=== PATIENT | male | born 1950 | race Caucasian/White ===

== ENCOUNTER 2016-05-19 07:26 | Inpatient (IN) ==
--- NOTE | 2016-05-16 14:45 | Discharge Summary ---
<Maryan Delaney - Last Filed: 05/18/16 21:10> Date of Encounter: 05/18/16 - Discharge Diagnosis (1) Glenohumeral arthritis Priority: Primary Status: Acute Qualifiers: Laterality: right Qualified Code(s): M19.011 - Primary osteoarthritis, right shoulder (2) Smoker Priority: Secondary Status: Chronic (3) HTN (hypertension) Priority: Secondary Status: Chronic Qualifiers: Hypertension type: essential hypertension Qualified Code(s): I10 - Essential (primary) hypertension (4) Hyperlipidemia Priority: Secondary Status: Chronic Qualifiers: Hyperlipidemia type: unspecified Qualified Code(s): E78.5 - Hyperlipidemia , unspecified (5) Pacemaker Priority: Secondary Status: Chronic - Discharge Medications Home Medications: Ascorbic Acid [Vitamin C] 1,000 mg PO DAILY 11/25/14 [History] Cholecalciferol (Vitamin D3) [Vitamin D] 1,000 unit PO DAILY 11/25/14 [History] Gabapentin [Neurontin] 300 mg PO TID 11/25/14 [History] Losartan [Cozaar] 100 mg PO QPM 11/25/14 [History] Metoprolol XL (24 HR) Succ [Toprol XL] 50 mg PO DAILY 11/25/14 [History] SUMAtriptan [Imitrex] 100 mg PO DAILY PRN 11/25/14 [History] Simvastatin [Zocor] 40 mg PO QPM 11/25/14 [History] Tizanidine [Zanaflex] 4 mg PO Q8H PRN 11/25/14 [History] OxyCODONE Immed Rel [Roxicodone 5 MG] 10 mg PO TID PRN 12/04/15 [History] Melatonin 5 mg PO HS 01/18/16 [History] Vitamin B Complex 1 each PO DAILY 01/18/16 [History] Amlodipine Besylate 2.5 mg PO DAILY 04/08/16 [History] Cranberry Fruit Extract [Cranberry] 1,000 mg PO QID 04/08/16 [History] Dicyclomine [Bentyl] 10 mg PO QID PRN 04/08/16 [History] Fluticasone Propionate Nasal [Flonase] 50 mcg NS DAILY 04/08/16 [History] Multivitamin [Multivitamins] 1 each PO DAILY 04/08/16 [History] Sertraline [Zoloft] 25 mg PO DAILY 04/08/16 [History] OxyCODONE Immed Rel [Roxicodone 5 MG] 5 - 10 mg PO DAILY #14 tablet 05/18/16 [Rx ] Allergies/Adverse Reactions: Allergies latex Allergy (Verified 05/19/16 08:28) Redness of Skin Cyclobenzaprine [From Flexeril] Adverse Reaction (Verified 05/19/16 08:28) Nausea methocarbamol [From Robaxin] Adverse Reaction (Verified 05/19/16 08:28) Nausea naproxen Adverse Reaction (Verified 05/19/16 08:28) Nausea tramadol Adverse Reaction (Verified 05/19/16 08:28) Nausea Primary care physician: Tai Bernal MD - Patient Status Disposition: Home, Self-Care Condition: Good - Discharge Instructions Follow Up With: Tai Bernal MD [Primary Care Provider] - - Hospital Course Hospital course: Mr. Godoy is a 66 year old male - Time Spent with Patient Total time spent providing and/or coordinating discharge services: <Mitch Mendoza - Last Filed: 05/20/16 06:48> Date of Encounter: 05/20/16 Time of Encounter: 06:47 - Discharge Diagnosis (1) Smoker Priority: Secondary Status: Chronic (2) HTN (hypertension) Priority: Secondary Status: Chronic Qualifiers: Hypertension type: essential hypertension Qualified Code(s): I10 - Essential (primary) hypertension (3) Hyperlipidemia Priority: Secondary Status: Chronic Qualifiers: Hyperlipidemia type: unspecified Qualified Code(s): E78.5 - Hyperlipidemia , unspecified (4) Pacemaker Priority: Secondary Status: Chronic (5) Polycythemia Priority: Secondary Status: Chronic (6) Glenohumeral arthritis Priority: Primary Status: Acute Qualifiers: Laterality: right Qualified Code(s): M19.011 - Primary osteoarthritis, right shoulder Primary care physician: Tai Bernal MD - Patient Status Functional capacity at discharge: independent ambulation Overall status at discharge: patient is progressing back to baseline - Hospital Course Hospital course: Mr. Godoy is a 66 year old male The patient had an uneventful postoperative course. They received antibiotics and physical therapy and were discharged in stable condition. There will follow -up in the office in 2 weeks. - Time Spent with Patient Total time spent providing and/or coordinating discharge services:
--- NOTE | 2016-05-19 07:37 | History & Physical Report ---
Date of Encounter: 05/19/16 Time of Encounter: 07:37 24 Hour HP Update - Instructions Instructions: If the History and Physical is less than 30 days old and was completed prior to A.M. admission and or procedure and has NOT been updated on calendar day of procedure please complete this update prior to performing procedure. - Update Patient reports changes in Medical Condition: No Changes in examination, assessment, or condition: No Changes in Medication: No Preop tests/diagnostics Reviewed: Yes Surgery Remains Indicated: Yes Consent for Planned Operative Procedure(s) Verified: Yes - Pre-Operative Checklist Preoperative Checklist Indicated: No Prophylactic Antibiotic Ordered: Yes Is VTE Prophylaxis Indicated?: Yes
[2016-05-19] MEDS ORDERED: *HR* Midazolam HCl 2 MG/2 ML VIAL ONE (08:03)
[2016-05-19] MEDS ORDERED: Ondansetron 4 MG/2 ML VIAL ONE (08:03)
[2016-05-19] MEDS ORDERED: *HR* Propofol 200 MG/20 ML VIAL IVP ONE (08:03)
[2016-05-19] MEDS ORDERED: Lidocaine -MPF 2% 2 ML VIAL ONE (08:03)
[2016-05-19] MEDS ORDERED: *HR* Succinylcholine 200 MG/10 ML VIAL IVP ONE (08:03)
[2016-05-19] MEDS ORDERED: *HR* FentaNYL (PF) 100 MCG/2 ML VIAL ONE (08:03)
[2016-05-19] MEDS ORDERED: CeFAZolin Pre 2,000 MG/100 ML 2,000 MG/100 ML BAG IVPB ONE (08:07)
[2016-05-19] MEDS ORDERED: Albuterol 2.5 MG/3 ML NEBULIZER IH ONE (08:07)
[2016-05-19] MEDS ORDERED: Ringers Solution, Lactated 1,000 ML IVC SCH (08:15)
[2016-05-19] MEDS ORDERED: Famotidine 20 MG/2 ML VIAL IVP ONE (08:29)
--- NOTE | 2016-05-19 08:36 | Anesthesia Evaluation PreOp ---
Date of Encounter: 05/19/16 Time of Encounter: 08:35 - Past History Planned Operation: Rt Total Shoulder Cardiac History: HTN, Hyperlipidemia, Pacemaker/ICD (Last checked ) Pulmonary History: Denies Any Significant HX FOREST MANAGEMENT PROFESSOR History: Denies Any Significant HX Other Medical History: GERD Anesthesia History: No Prior Anesthetic Complications Alcohol Use: none Drug use: none Medications and Allergies Ascorbic Acid [Vitamin C] 1,000 mg PO DAILY 11/25/14 [History] Cholecalciferol (Vitamin D3) [Vitamin D] 1,000 unit PO DAILY 11/25/14 [History] Gabapentin [Neurontin] 300 mg PO TID 11/25/14 [History] Losartan [Cozaar] 100 mg PO QPM 11/25/14 [History] Metoprolol XL (24 HR) Succ [Toprol XL] 50 mg PO DAILY 11/25/14 [History] SUMAtriptan [Imitrex] 100 mg PO DAILY PRN 11/25/14 [History] Simvastatin [Zocor] 40 mg PO QPM 11/25/14 [History] Tizanidine [Zanaflex] 4 mg PO Q8H PRN 11/25/14 [History] OxyCODONE Immed Rel [Roxicodone 5 MG] 10 mg PO TID PRN 12/04/15 [History] Melatonin 5 mg PO HS 01/18/16 [History] Vitamin B Complex 1 each PO DAILY 01/18/16 [History] Amlodipine Besylate 2.5 mg PO DAILY 04/08/16 [History] Cranberry Fruit Extract [Cranberry] 1,000 mg PO QID 04/08/16 [History] Dicyclomine [Bentyl] 10 mg PO QID PRN 04/08/16 [History] Fluticasone Propionate Nasal [Flonase] 50 mcg NS DAILY 04/08/16 [History] Multivitamin [Multivitamins] 1 each PO DAILY 04/08/16 [History] Sertraline [Zoloft] 25 mg PO DAILY 04/08/16 [History] OxyCODONE Immed Rel [Roxicodone 5 MG] 5 - 10 mg PO DAILY #14 tablet 05/18/16 [Rx ] Allergies latex Allergy (Verified 05/19/16 08:28) Redness of Skin Cyclobenzaprine [From Flexeril] Adverse Reaction (Verified 05/19/16 08:28) Nausea methocarbamol [From Robaxin] Adverse Reaction (Verified 05/19/16 08:28) Nausea naproxen Adverse Reaction (Verified 05/19/16 08:28) Nausea tramadol Adverse Reaction (Verified 05/19/16 08:28) Nausea - Meds/Allergy Pre-op Review Medications Reviewed: Yes Allergies Reviewed: Yes Beta Blockers on Current Med List: Yes (Took Metoprolol today 0610) Anesthesia Results - Imaging EKG: report reviewed (Atrial Pacemaker) Additional studies: EF 60% Anesthesia Exam O2 Sat Height 1.78 m Height 1.78 m Height 1.78 m Weight 87.09 kg Weight 87.09 kg Weight 87.09 kg O2 Sat by Pulse Oximetry 97 O2 Sat by Pulse Oximetry 97 Vital Signs Temp Pulse Resp BP Pulse Ox 98.0 F 87 18 117/79 97 05/19/16 07:44 05/19/16 07:44 05/19/16 07:44 05/19/16 07:44 05/19/16 07:44 Height: 5'10 Weight: 185 lbs NPO (# of Hours): MN Pain Scale: 0 - HEENT Pupil (Motor): Pupils equal, EOMI Mallampati: III Teeth: Edentulous Oral Opening: Greater than 3 - FOREST MANAGEMENT PROFESSOR LOC: Oriented FOREST MANAGEMENT PROFESSOR Motor: Normal RUE, Normal LUE, Normal RLE, Normal LLE, Normal Face FOREST MANAGEMENT PROFESSOR Sensory: Normal: RUE, LUE, RLE, LLE, Face - Cardiac Rhythm: Regular Murmur: None JVD: No Carotid Bruit: No - Pulmonary Breath Sounds: bilateral Clear Respiratory Effort: Symmetrical Anesthesia Assess/Plan ASA Score: 3 (HTN Arrhythmia) Modified [place] Scale for Level of Consciousness: Cooperative, oriented, and tranquil Anesthetic Plan: General, Regional Monitoring Plan: Standard Monitors Recovery Plan: PACU (Discused GA and RA, agrees to proceed)
[2016-05-19] MEDS ORDERED: Bupivacaine/Clonidine Syringe 1 EACH SYRINGE ONE (09:19)
[2016-05-19] MEDS ORDERED: ROPIVACAINE HCL/PF 0.5% 30 ML VIAL ONE (09:19)
[2016-05-19] MEDS ORDERED: Tetracaine/PF 20 MG/2 ML AMPUL SPINA ONE (09:19)
--- NOTE | 2016-05-19 09:55 | Anesthesia Procedures ---
Date of Encounter: 05/19/16 Time of Encounter: 08:34 Procedures: Anesthesia - Nerve Block Procedure Date: 05/19/16 Time: 09:45 Pre-op Diagnosis: Rt Shoulder Arthropathy Surgical Procedure: Rt Shoulder Replacement Checklist: Correct Patient Identifier Correct side: Right Blood Thinner: No Monitor Applied: EKG, BP, Pulse Oximetry Supplemental Oxygen via Nasal Cannula (L/min): 2 Sedation: Versed (mg): 2 Sedation: Fentanyl (mcg): 100 Indication: Post Op Analgesia Pre-op Neuro Deficits: No Block Type: Supraclavicular, Other (SCPB) Catheter placed: No Depth at skin (cm): 2 Sterile Technique: Yes Ultrasound used: Yes Anatomy identified: Yes Visual spread of Local: Yes Neuro Stimulation: No Blood on Needle Aspiration: No Smooth Injection of Local: Yes Pain with Injection of Local: No Prep: Chlorhexadine Needle: 22 x 50 mm Stimuplex Local: 0.25% Bupivicaine w/Clonidine 20 mcg/cc, Tetracaine (20), Ropivacaine ( 0.5%) Volume (cc): 30 Number of Attempts: 1 Complications: None/effective block Vitals: Vital Signs/O2 Sat/Glucose, Most Current Temp Pulse Resp BP Pulse Ox 05/19/16 09:48 71 16 135/92 97 05/19/16 09:28 80 16 130/98 97 05/19/16 08:09 98.0 F 87 18 117/79 97 05/19/16 07:44 98.0 F 87 18 117/79 97
[2016-05-19] MEDS ORDERED: Ondansetron 4 MG/2 ML VIAL IVP ONE (10:39)
[2016-05-19] MEDS ORDERED: *HR* HYDROmorphone (PF) 1 MG/ML SYRINGE IVP PRN ×2 (10:39→12:00)
[2016-05-19] MEDS ORDERED: *HR* Promethazine 25 MG/ML VIAL IVP PRN (10:39)
--- NOTE | 2016-05-19 10:54 | Orthopedic Operative Note ---
Date of procedure: 05/19/16 Pre-op diagnosis: Right shoulder arthritis Post-op diagnosis: same Procedure: Procedure: Right Total Shoulder Replacement Estimated blood loss: 100 cc Hardware:Arthrex glenoid: Large humeral stem: 10 humeral head 52 Exam Under anesthesia: Restricted motion in all planes Procedural Notes: Grade 3 arthritic changes humeral head glenoid socket. Operative procedure: The patient was brought to the operating room and placed on the operating room table. After general anesthesia was administered the operative shoulder was examined. Findings were noted. The patient was placed in the modified beachchair position. All pressure points were padded appropriately. And the head was stabilized in the neutral position. The operative extremity was prepped and draped in the sterile surgical fashion. The patient received IV antibiotics prior to skin incision. A standard deltopectoral approach was made to the operative shoulder. Incision was made to the skin and subcutaneous tissue,hemo stasis was obtained with Bovie cautery. Using careful blunt dissection the cephalic vein was identified and mobilized medially. The deltopectoral interval was developed and the clavipectoral fascia was incised. The subscap was released off the lesser tuberosity and tagged with #2 FiberWire suture. The humerus was dislocated osteophytes were present were removed and the humeral cut was made along the anatomic neck of noted to have grade 3 arthritic changes. Anterior and posterior Bankart retractors were placed to expose the glenoid. The glenoid guide was seated and the centering hole was made. It was reamed with the appropriate reamer large. The finishing guide was seated superior and inferior drill holes were placed. Finishing punch was seated large trial was seated had good fit and fixation. The large glenoid component was cemented in place held with digital pressure until cemented hardened. A good fit and fixation. The humerus was redislocated and prepared with the diaphyseal reamers, followed by a broaching process up to the appropriate size 10 in the patient's anatomic version. Trial components were removed and drill holes were placed in the bicipital groove x 2. The apex stem was filled with a #5 FiberWire suture through the holes in the stem the 2 lateral fin holes were passed through the drill holes in the lesser tuberosity. The 10 component was impacted in place the neck angle and version were locked in place with the inferior and superior screws the trial 52 head was seated and secured in the appropriate position shoulder had good motion and stability. Trial head was removed and the real 52 head seated and secured subscap was repaired to the humerus as well as the humeral stem. The deltopectoral interval was closed with a running #1 PDS suture, subcutaneous tissue was irrigated and closed with 0 PDS suture, the skin was closed with Dermabond. The patient was placed in a sterile dressing, abduction brace and extubated. The patient was then transferred to the recovery room in stable condition. Anesthesia: GETA Surgeon: Mitch Mendoza Grain Combiner: Marilia Acuna Condition: stable Disposition: PACU
[2016-05-19 11:41] LABS: Hematocrit 46.2 % (37.5-50.1)
[2016-05-19 11:42] LABS: Hemoglobin 15.2 g/dL (12.9-16.9)
--- NOTE | 2016-05-19 11:55 | Anesthesia Evaluation Post Op ---
Date of Encounter: 05/19/16 Time of Encounter: 12:00 - Vital Signs Vital Signs: Vital Signs/O2 Sat/Glucose, Most Current Temp Pulse Resp BP Pulse Ox 05/19/16 11:50 97.8 F 70 16 122/86 96 05/19/16 11:40 97.7 F 69 16 123/87 95 05/19/16 11:30 73 16 121/77 100 05/19/16 11:20 72 16 118/89 100 05/19/16 11:10 97.7 F 82 13 96/76 98 05/19/16 09:48 71 16 135/92 97 05/19/16 09:28 80 16 130/98 97 05/19/16 08:09 98.0 F 87 18 117/79 97 - Lungs Lungs: Clear Ascult./Percussion - Airway Airway: Non-obstructed - Cardiovascular Regular Rate - Mental Status Mental Status: Alert & Oriented, Answers Appropriately - Pain Pain Scale: 1 - Nausea Vomiting Nausea Vomiting: Not Present - Hydration Hydration: Ice chips - Discharge PostOp Status: Transfer Patient to floor
[2016-05-19] MEDS ORDERED: Acetaminophen 325 MG TABLET PO PRN (12:00)
[2016-05-19] MEDS ORDERED: MOM Conc 10 ML UD.LIQ PO PRN (12:00)
[2016-05-19] MEDS ORDERED: Sennosides 8.6 MG TABLET PO PRN (12:00)
[2016-05-19] MEDS ORDERED: *HR* OxyCODONE Immed Rel 5 MG TABLET PO PRN (12:00)
[2016-05-19] MEDS ORDERED: Ondansetron 4 MG/2 ML VIAL IVP PRN (12:00)
[2016-05-19] MEDS ORDERED: Temazepam 15 MG CAPSULE PO PRN (12:00)
[2016-05-19] MEDS ORDERED: Naloxone 0.4 MG/ML INJ IVP PRN (12:00)
[2016-05-19] MEDS: Ringers Solution, Lactated 1,000 ML IVC SCH ×2 (12:15→22:21)
[2016-05-19] MEDS: *HR* OxyCODONE Immed Rel 5 MG TABLET PO PRN ×3 (12:41→22:13)
[2016-05-19] MEDS: *HR* Enoxaparin 30 MG/0.3 ML SYRINGE SQ SCH (17:11)
[2016-05-19] MEDS: ceFAZolin 2,000 MG in D5% in Water 100 ML IVPB SCH (17:11)
[2016-05-19] MEDS ORDERED: *HR* Enoxaparin 30 MG/0.3 ML SYRINGE SQ SCH (18:00)
[2016-05-19] MEDS ORDERED: SUMAtriptan succinate 50 MG TABLET PO PRN (23:33)
[2016-05-19] MEDS ORDERED: tiZANidine 4 MG TABLET PO PRN (23:33)
[2016-05-19] MEDS ORDERED: Gabapentin 300 MG CAPSULE PO SCH (23:45)
[2016-05-20] MEDS ORDERED: Melatonin 3 MG TABLET PO SCH (00:15)
[2016-05-20] MEDS: ceFAZolin 2,000 MG in D5% in Water 100 ML IVPB SCH (00:20)
[2016-05-20] MEDS: *HR* OxyCODONE Immed Rel 5 MG TABLET PO PRN (06:33)
[2016-05-20] MEDS: *HR* Enoxaparin 30 MG/0.3 ML SYRINGE SQ SCH (06:34)
--- NOTE | 2016-05-20 06:48 | Orthopedics Progress Note ---
Date of Encounter: 05/20/16 Time of Encounter: 06:48 - Assessment and Plan (1) Smoker Current Visit: No Status: Chronic (2) HTN (hypertension) Current Visit: No Status: Chronic Qualifiers: Hypertension type: essential hypertension Qualified Code(s): I10 - Essential (primary) hypertension (3) Hyperlipidemia Current Visit: No Status: Chronic Qualifiers: Hyperlipidemia type: unspecified Qualified Code(s): E78.5 - Hyperlipidemia , unspecified (4) Pacemaker Current Visit: No Status: Chronic (5) Polycythemia Current Visit: No Status: Chronic (6) Glenohumeral arthritis Current Visit: Yes Status: Acute Qualifiers: Laterality: right Qualified Code(s): M19.011 - Primary osteoarthritis, right shoulder Subjective Interval history: Patient was seen this morning doing well without complaints. Afebrile vital signs stable. Operative extremity: Neurovascularly intact Dressing clean dry and intact Calves nontender Assessment and plan: Continue with postoperative care Discharged today Objective Vital signs: Vital Signs Temp Pulse Resp BP Pulse Ox 05/20/16 04:20 98.9 F 76 18 112/67 94 05/19/16 23:40 99.1 F 76 19 131/80 94 05/19/16 19:04 98.5 F 89 18 142/83 95 05/19/16 15:05 97.6 F 70 16 126/77 95 05/19/16 14:13 97.9 F 71 15 109/72 95 05/19/16 13:05 98.0 F 71 16 122/78 98 05/19/16 12:29 97.6 F 70 16 132/84 93 05/19/16 12:05 97.9 F 70 14 122/82 93 05/19/16 11:50 97.8 F 70 16 122/86 96 05/19/16 11:40 97.7 F 69 16 123/87 95 05/19/16 11:30 73 16 121/77 100 05/19/16 11:20 72 16 118/89 100 05/19/16 11:10 97.7 F 82 13 96/76 98 05/19/16 09:48 71 16 135/92 97 05/19/16 09:28 80 16 130/98 97 05/19/16 08:09 98.0 F 87 18 117/79 97 05/19/16 07:44 98.0 F 87 18 117/79 97 Intake and Output 05/19/16 05/19/16 05/20/16 15:59 23:59 07:59 Intake Total 1100 / 1100 Output Total 350 / 350 400 / 400 200 / 200 Balance -350 / -350 700 / 700 -200 / -200 Intake: IV Fluids 1100 / 1100 Lactated Ringers 1,000 ML 1000 / 1000 @ 75 mls/hr IVC .[id number] [facility] Rx#:[id number] Ancef 2,000 MG In 100 / 100 Dextrose 5% 100 ML @ 200 mls/hr IVPB Q8HR [facility] Rx#: [id number] Output: Urine 250 / 250 400 / 400 200 / 200 Estimated Blood Loss 100 / 100 Other: Weight 87.09 kg - Labs CBC & BMP: 05/19/16 11:28 - VTE Documentation of Mechanical Device: Venous foot pump, device Consult Discharge Plan - Plan Referrals: Tai Bernal MD [Primary Care Provider] -
[2016-05-20 06:53] VITALS: BP 126/79
[2016-05-20 07:03] LABS: Hematocrit 42.5 % (37.5-50.1); Hemoglobin 14.4 g/dL (12.9-16.9)
[2016-05-20] MEDS ORDERED: Multivit/Ca/Min/Fe/FA 1 TAB TABLET PO SCH (09:00)
[2016-05-20] MEDS ORDERED: Ascorbic Acid 500 MG TABLET PO SCH (09:00)
[2016-05-20] MEDS ORDERED: Vitamin B Complex/Vit C/Vit E 1 EACH TABLET PO SCH (09:00)
[2016-05-20] MEDS ORDERED: amLODIPine 5 MG TABLET PO SCH (09:00)
[2016-05-20] MEDS ORDERED: Fluticasone Propionate Nasal 50 MCG/SPRAY BOTTLE NS SCH (09:00)
[2016-05-20] MEDS ORDERED: Metoprolol XL (24 HR) Succ 50 MG TAB.ER.24H PO SCH (09:00)
== END 2016-05-20 10:00 | disposition home or self-care (01) | DRG 483 ==
LOC: SAMDAY 07:26 → 3NENU 11:52
PROVIDERS: ADMIT Orthopaedic Surgery; ATTEND Orthopaedic Surgery

== ENCOUNTER 2017-04-03 11:18 | Observation (INO) ==
--- NOTE | 2017-04-03 11:46 | Emergency Department Note ---
Disposition Clinical Impression: Chest pain Disposition: Admitted As Inpatient Condition: Good Referrals: Tai Bernal MD [Primary Care Provider] - Forms: ED Satisfaction Letter General Adult HPI - General Chief complaint: ED Chest Pain Stated complaint: Chest Pain Time Seen by Provider: 04/03/17 11:25 Source: EMS Limitations: no limitations Nursing Notes Reviewed: Yes Vital Signs Reviewed: Yes - History of Present Illness Pain Scale: 7 - Related Data Home Medications Medication Instructions Recorded Confirmed Ascorbic Acid [Vitamin C] 1,000 mg PO DAILY 11/25/14 04/03/17 Cholecalciferol (Vitamin D3) 1,000 unit PO DAILY 11/25/14 04/03/17 [Vitamin D] Gabapentin [Neurontin] 300 mg PO QID 11/25/14 04/03/17 Losartan [Cozaar] 100 mg PO QPM 11/25/14 04/03/17 Metoprolol XL (24 HR) Succ [Toprol 50 mg PO DAILY 11/25/14 04/03/17 XL] SUMAtriptan succinate [Imitrex] 100 mg PO DAILY PRN 11/25/14 04/03/17 Simvastatin [Zocor] 40 mg PO QPM 11/25/14 04/03/17 tiZANidine [Zanaflex] 4 mg PO Q8H PRN 11/25/14 04/03/17 Melatonin 5 mg PO HS 01/18/16 04/03/17 Vitamin B Complex 1 each PO DAILY 01/18/16 04/03/17 Amlodipine Besylate 2.5 mg PO DAILY 04/08/16 04/03/17 Cranberry Fruit Extract [Cranberry] 1,000 mg PO QID 04/08/16 04/03/17 Dicyclomine [Bentyl] 10 mg PO QID PRN 04/08/16 04/03/17 Fluticasone Propionate Nasal 50 mcg NS DAILY 04/08/16 04/03/17 [Flonase] Multivitamin [Multivitamins] 1 each PO DAILY 04/08/16 04/03/17 Aspirin [Lo-Dose Aspirin EC] 81 mg PO DAILY 04/03/17 04/03/17 Atorvastatin Calcium [Lipitor] 20 mg PO QPM 04/03/17 04/03/17 Sertraline [Zoloft] 50 mg PO DAILY 04/03/17 04/03/17 Allergies Allergy/AdvReac Type Severity Reaction Status Date / Time latex Allergy Redness of Verified 05/19/16 08:28 Skin Cyclobenzaprine AdvReac Nausea Verified 05/19/16 08:28 [From Flexeril] methocarbamol [From Robaxin] AdvReac Nausea Verified 05/19/16 08:28 naproxen AdvReac Nausea Verified 05/19/16 08:28 tramadol AdvReac Nausea Verified 05/19/16 08:28 Past Medical History - Past Medical History Medical history: Reports: atrial fibrillation, COPD, hyperlipidemia, hypertension, kidney stones Surgical history: Reports: cholecystectomy, herniorrhaphy, pacemaker/AICD, other Psychiatric history: Reports: anxiety, depression, PTSD - Social History Smoking Status: Current every day smoker Smokeless Tobacco Status: No Alcohol use: Reports: none Drug use: Reports: none Physical Exam - General Limitations: no limitations General appearance: alert, in no apparent distress Course Vital Signs Temperature 97.8 F 04/03/17 11:19 Pulse Rate 72 04/03/17 11:19 Respiratory Rate 18 04/03/17 11:19 Blood Pressure 126/83 04/03/17 11:19 O2 Sat by Pulse Oximetry 97 04/03/17 11:19 Temperature 97.8 F 04/03/17 11:19 Pulse Rate 74 04/03/17 12:55 Respiratory Rate 18 04/03/17 12:55 Blood Pressure 111/81 04/03/17 12:55 O2 Sat by Pulse Oximetry 92 04/03/17 12:55 Oxygen Delivery Oxygen Delivery Nasal Cannula Medical Decision Making - MDM Narrative Medical decision making narrative: This documentation is done with the assistance of Dragon dictation. Despite efforts made to ensure accuracy, there may be inaccuracies in dog groomer or spelling and typographical errors. I examined this patient and my medical decision-making was reviewed with the Resident Physician. I agree with the documented findings, disposition and treatment plan as described except to the extent set forth below. Patient seen and evaluated by Dr. Lind and myself, I agree with his evaluation and management plan, I supervised the care of the patient's stay. Patient was in his doctor's office for routine checkup no chest pain Y Mizer radiating into his left arm. In ascending here. He has an AICD in place. History of A. fib but does not like he has any coronary disease. We will do a cardiac workup and reassessed. He is in agreement with plan. Chest X-Ray 04/03/17 11:26 IMPRESSION: Chronic versus recurrent densities at the lung bases may be related to subsegmental atelectasis or scar. Otherwise unremarkable chest. D/ / Thony Alicea / Thony Alicea Interpreting Provider: Thony Alicea 1300 hrs.: After 2 nitroglycerin trials. He is now pain-free. We will discuss case with hospitalist for admission. - Lab Data Result diagrams: 04/03/17 12:06 04/03/17 12:06 Lab Results 04/03/17 04/03/17 04/03/17 Range/Units 12:06 12:06 12:06 WBC 9.1 (4.3-11.1) K/mcL RBC 4.99 (4.19-5.50) M/mcL Hgb 16.0 (12.9-16.9) g/dL Hct 48.3 (37.5-50.1) % MCV 96.8 (83.0-100.0) fL MCH 32.1 (28.0-33.3) pg MCHC 33.1 (31.6-35.5) g/dL RDW 13.8 (11.5-14.5) % Plt Count 178 (140-400) K/mcL MPV 9.7 (9.4-12.4) fL Immature Gran % 0.1 (0-4) % Seg Neutrophils % 53.0 % Lymphocytes % 33.3 % Monocytes % 9.3 % Eosinophils % 3.7 % Basophils % 0.6 % Neutrophils # 4.8 (1.6-8.9) K/mcL Lymphocytes # 3.0 (0.6-4.6) K/mcL Monocytes # 0.8 (0.0-1.3) K/mcL Eosinophils # 0.3 (0.0-0.6) K/mcL Basophils # 0.1 (0.0-0.2) K/mcL Sodium 141 (136-145) mEq/L Potassium 4.2 (3.5-5.1) mEq/L Chloride 112 H (98-107) mEq/L Carbon Dioxide 25 (23-29) mEq/L BUN 14 (8-23) mg/dL Creatinine 0.94 (0.70-1.30) mg/dL Est GFR ( Amer) > 60 (> 60) Est GFR (Non-Af Amer) > 60 (> 60) BUN/Creatinine Ratio 15 (6-26) Glucose 91 (70-105) mg/dL Calculated Osmolality 292 (280-300) Calcium 9.2 (8.6-10.3) mg/dL Troponin I < 0.03 (< 0.04) ng/mL B-Natriuretic Peptide (Less than 100) pg/mL 04/03/17 Range/Units 12:06 WBC (4.3-11.1) K/mcL RBC (4.19-5.50) M/mcL Hgb (12.9-16.9) g/dL Hct (37.5-50.1) % MCV (83.0-100.0) fL MCH (28.0-33.3) pg MCHC (31.6-35.5) g/dL RDW (11.5-14.5) % Plt Count (140-400) K/mcL MPV (9.4-12.4) fL Immature Gran % (0-4) % Seg Neutrophils % % Lymphocytes % % Monocytes % % Eosinophils % % Basophils % % Neutrophils # (1.6-8.9) K/mcL Lymphocytes # (0.6-4.6) K/mcL Monocytes # (0.0-1.3) K/mcL Eosinophils # (0.0-0.6) K/mcL Basophils # (0.0-0.2) K/mcL Sodium (136-145) mEq/L Potassium (3.5-5.1) mEq/L Chloride (98-107) mEq/L Carbon Dioxide (23-29) mEq/L BUN (8-23) mg/dL Creatinine (0.70-1.30) mg/dL Est GFR ( Amer) (> 60) Est GFR (Non-Af Amer) (> 60) BUN/Creatinine Ratio (6-26) Glucose (70-105) mg/dL Calculated Osmolality (280-300) Calcium (8.6-10.3) mg/dL Troponin I (< 0.04) ng/mL B-Natriuretic Peptide 30 (Less than 100) pg/mL
[2017-04-03] MEDS ORDERED: Nitroglycerin 0.4 MG TAB.SUBL SL PRN (11:53)
--- NOTE | 2017-04-03 12:17 | Emergency Department Note ---
Disposition Clinical Impression: Chest pain Qualifiers: Chest pain type: unspecified Qualified Code(s): R07.9 - Chest pain, unspecified Disposition: Admitted As Inpatient Condition: Good Referrals: Tai Bernal MD [Primary Care Provider] - Forms: ED Satisfaction Letter General Adult HPI - General Chief complaint: ED Chest Pain Stated complaint: Chest Pain Time Seen by Provider: 04/03/17 11:25 Source: EMS Limitations: no limitations Nursing Notes Reviewed: Yes Vital Signs Reviewed: Yes - History of Present Illness HPI Narrative: 67 y/o male w/ a PMH of HLD, HTN presents with CP beginning 45 minutes [employer]ATER TREATMENT [employer]. He was at his PCP office for a regular check up. While there he developed left side chest discomfort that waxes and wanes in intensity. Not worse with exertion. No diaphoresis but some nausea is present. Hx of multiple catheterizations but no stents or bypass. Radiation: non-radiation Pain Severity: moderate Pain Scale: 7 Consistency: constant Improves with: nothing Worsens with: nothing Associated symptoms: Reports: denies other symptoms Treatments Prior to Arrival: none - Related Data Home Medications Medication Instructions Recorded Confirmed Ascorbic Acid [Vitamin C] 1,000 mg PO DAILY 11/25/14 05/19/16 Cholecalciferol (Vitamin D3) 1,000 unit PO DAILY 11/25/14 04/08/16 [Vitamin D] Gabapentin [Neurontin] 300 mg PO TID 11/25/14 05/19/16 Losartan [Cozaar] 100 mg PO QPM 11/25/14 05/19/16 Metoprolol XL (24 HR) Succ [Toprol 50 mg PO DAILY 11/25/14 05/19/16 XL] SUMAtriptan succinate [Imitrex] 100 mg PO DAILY PRN 11/25/14 05/19/16 Simvastatin [Zocor] 40 mg PO QPM 11/25/14 05/19/16 tiZANidine [Zanaflex] 4 mg PO Q8H PRN 11/25/14 05/19/16 Melatonin 5 mg PO HS 01/18/16 05/19/16 Vitamin B Complex 1 each PO DAILY 01/18/16 05/19/16 Amlodipine Besylate 2.5 mg PO DAILY 04/08/16 05/19/16 Cranberry Fruit Extract [Cranberry] 1,000 mg PO QID 04/08/16 Dicyclomine [Bentyl] 10 mg PO QID PRN 04/08/16 05/19/16 Fluticasone Propionate Nasal 50 mcg NS DAILY 04/08/16 05/19/16 [Flonase] Multivitamin [Multivitamins] 1 each PO DAILY 04/08/16 05/19/16 Aspirin [Lo-Dose Aspirin EC] 81 mg PO DAILY 04/03/17 04/03/17 Atorvastatin Calcium [Lipitor] 20 mg PO QPM 04/03/17 04/03/17 Sertraline [Zoloft] 50 mg PO DAILY 04/03/17 04/03/17 Allergies Allergy/AdvReac Type Severity Reaction Status Date / Time latex Allergy Redness of Verified 05/19/16 08:28 Skin Cyclobenzaprine AdvReac Nausea Verified 05/19/16 08:28 [From Flexeril] methocarbamol [From Robaxin] AdvReac Nausea Verified 05/19/16 08:28 naproxen AdvReac Nausea Verified 05/19/16 08:28 tramadol AdvReac Nausea Verified 05/19/16 08:28 All systems ED: reviewed and negative except as stated. Constitutional: Denies: fever ENT ED: Denies: throat pain Cardiovascular: Reports: chest pain Respiratory: Denies: cough Gastrointestinal: Denies: abdominal pain Integumentary: Denies: rash Past Medical History - Past Medical History Medical history: Reports: atrial fibrillation, COPD, hyperlipidemia, hypertension, kidney stones Surgical history: Reports: cholecystectomy, herniorrhaphy, pacemaker/AICD, other Psychiatric history: Reports: anxiety, depression, PTSD - Social History Smoking Status: Current every day smoker Smokeless Tobacco Status: No Alcohol use: Reports: none Drug use: Reports: none Physical Exam - General Limitations: no limitations General appearance: alert, in no apparent distress - Head Head exam: atraumatic - Eye Eye exam: Present: normal appearance, PERRL - ENT ENT exam: normal exam, normal oropharynx - Neck Neck exam: Present: normal inspection - Chest Chest inspection: Present: normal inspection - Respiratory Respiratory exam: Present: normal lung sounds bilaterally. Absent: respiratory distress - Cardiovascular Cardiovascular exam: Present: regular rate, normal rhythm - Abdominal Exam Abdominal exam: Present: soft, Non-Tender - Extremities Exam Extremities exam: Present: normal inspection - Neurological Exam Neurological exam: Present: alert, oriented X3 - Psychiatric Psychiatric exam: Present: normal affect, normal mood - Skin Skin exam: Present: warm, dry Course Course Narrative: Pain free after nitroglycerin. HEART score of 5. Will admit for chest pain rule out. Accepted by [facility] Vital Signs Temperature 97.8 F 04/03/17 11:19 Pulse Rate 72 04/03/17 11:19 Respiratory Rate 18 04/03/17 11:19 Blood Pressure 126/83 04/03/17 11:19 O2 Sat by Pulse Oximetry 97 04/03/17 11:19 Temperature 97.8 F 04/03/17 11:19 Pulse Rate 74 04/03/17 12:55 Respiratory Rate 18 04/03/17 12:55 Blood Pressure 111/81 04/03/17 12:55 O2 Sat by Pulse Oximetry 92 04/03/17 12:55 Oxygen Delivery Oxygen Delivery Nasal Cannula Medical Decision Making - Medical Records Medical records reviewed: Yes I reviewed the patient's medical records. - Lab Data Lab results reviewed: Yes I reviewed the patient's lab results. Result diagrams: 04/03/17 12:06 04/03/17 12:06 Lab Results 04/03/17 04/03/17 04/03/17 Range/Units 12:06 12:06 12:06 WBC 9.1 (4.3-11.1) K/mcL RBC 4.99 (4.19-5.50) M/mcL Hgb 16.0 (12.9-16.9) g/dL Hct 48.3 (37.5-50.1) % MCV 96.8 (83.0-100.0) fL MCH 32.1 (28.0-33.3) pg MCHC 33.1 (31.6-35.5) g/dL RDW 13.8 (11.5-14.5) % Plt Count 178 (140-400) K/mcL MPV 9.7 (9.4-12.4) fL Immature Gran % 0.1 (0-4) % Seg Neutrophils % 53.0 % Lymphocytes % 33.3 % Monocytes % 9.3 % Eosinophils % 3.7 % Basophils % 0.6 % Neutrophils # 4.8 (1.6-8.9) K/mcL Lymphocytes # 3.0 (0.6-4.6) K/mcL Monocytes # 0.8 (0.0-1.3) K/mcL Eosinophils # 0.3 (0.0-0.6) K/mcL Basophils # 0.1 (0.0-0.2) K/mcL Sodium 141 (136-145) mEq/L Potassium 4.2 (3.5-5.1) mEq/L Chloride 112 H (98-107) mEq/L Carbon Dioxide 25 (23-29) mEq/L BUN 14 (8-23) mg/dL Creatinine 0.94 (0.70-1.30) mg/dL Est GFR ( Amer) > 60 (> 60) Est GFR (Non-Af Amer) > 60 (> 60) BUN/Creatinine Ratio 15 (6-26) Glucose 91 (70-105) mg/dL Calculated Osmolality 292 (280-300) Calcium 9.2 (8.6-10.3) mg/dL Troponin I < 0.03 (< 0.04) ng/mL B-Natriuretic Peptide (Less than 100) pg/mL 04/03/17 Range/Units 12:06 WBC (4.3-11.1) K/mcL RBC (4.19-5.50) M/mcL Hgb (12.9-16.9) g/dL Hct (37.5-50.1) % MCV (83.0-100.0) fL MCH (28.0-33.3) pg MCHC (31.6-35.5) g/dL RDW (11.5-14.5) % Plt Count (140-400) K/mcL MPV (9.4-12.4) fL Immature Gran % (0-4) % Seg Neutrophils % % Lymphocytes % % Monocytes % % Eosinophils % % Basophils % % Neutrophils # (1.6-8.9) K/mcL Lymphocytes # (0.6-4.6) K/mcL Monocytes # (0.0-1.3) K/mcL Eosinophils # (0.0-0.6) K/mcL Basophils # (0.0-0.2) K/mcL Sodium (136-145) mEq/L Potassium (3.5-5.1) mEq/L Chloride (98-107) mEq/L Carbon Dioxide (23-29) mEq/L BUN (8-23) mg/dL Creatinine (0.70-1.30) mg/dL Est GFR ( Amer) (> 60) Est GFR (Non-Af Amer) (> 60) BUN/Creatinine Ratio (6-26) Glucose (70-105) mg/dL Calculated Osmolality (280-300) Calcium (8.6-10.3) mg/dL Troponin I (< 0.04) ng/mL B-Natriuretic Peptide 30 (Less than 100) pg/mL - Radiology Data Radiology results reviewed: Yes I reviewed the patient's radiology results. - EKG Data EKG #1 EKG attestation: Yes I reviewed and interpreted this EKG. Interpretation: other (sinus rhythm, with atrial pacing spikes present, prior EKG shows ventricular paced)
[2017-04-03 12:22] LABS: Basophils # 0.1 K/mcL (0.0-0.2); Basophils % 0.6 %; Eosinophils # 0.3 K/mcL (0.0-0.6); Eosinophils % 3.7 %; Hematocrit 48.3 % (37.5-50.1); Immature Granulocytes % 0.1 % (0-4); Lymphocytes % 33.3 %; Mean Corpuscular HGB Conc 33.1 g/dL (31.6-35.5); Mean Corpuscular Hemoglobin 32.1 pg (28.0-33.3); Mean Corpuscular Volume 96.8 fL (83.0-100.0); Mean Platelet Volume 9.7 fL (9.4-12.4); Monocytes # 0.8 K/mcL (0.0-1.3); Monocytes % 9.3 %; Neutrophils # 4.8 K/mcL (1.6-8.9); Platelet Count 178 K/mcL (140-400); Red Blood Count 4.99 M/mcL (4.19-5.50); Red Cell Distribution Width 13.8 % (11.5-14.5)
[2017-04-03 12:33] LABS: Calcium 9.2 mg/dL (8.6-10.3); Carbon Dioxide 25 mEq/L (23-29); Chloride 112 mEq/L (98-107); Potassium 4.2 mEq/L (3.5-5.1); Sodium 141 mEq/L (136-145)
[2017-04-03 12:39] LABS: BUN/Creatinine Ratio 15 (6-26); Blood Urea Nitrogen 14 mg/dL (8-23); Glucose 91 mg/dL (70-105); Osmolality,Calculated 292 (280-300); eGFR For African Americans > 60 (> 60); eGFR For Non-African Americans > 60 (> 60)
[2017-04-03] MEDS ORDERED: Acetaminophen 325 MG TABLET PO PRN (17:37)
[2017-04-03] MEDS ORDERED: Naloxone 0.4 MG/ML INJ IVP PRN (17:37)
[2017-04-03] MEDS ORDERED: *HR* HYDROcodone/Acet 5/325 mg TABLET PO PRN (17:37)
[2017-04-03] MEDS ORDERED: *HR* OxyCODONE Immed Rel 5 MG TABLET PO PRN (17:37)
[2017-04-03] MEDS ORDERED: tiZANidine 4 MG TABLET PO PRN (17:47)
[2017-04-03] MEDS ORDERED: SUMAtriptan succinate 50 MG TABLET PO PRN (17:47)
[2017-04-03] MEDS ORDERED: *HR* Morphine 2 MG/ML SYRINGE IVP PRN (17:54)
--- NOTE | 2017-04-03 18:01 | Internal Med History&Physical ---
<Todd Sanders - Last Filed: 04/03/17 20:51> Date of Encounter: 04/03/17 Time of Encounter: 17:00 Assessment and Plan (1) Chest pain Current visit: Yes Status: Acute Acute chest pain that began this morning w/wo exertion. Patient describes as left-sided with radiation to left arm and rates pain as sharp and stabbing. States for nitroglycerin alleviated pain. No alleviating or aggravating factors. Diaphoresis, SOB, and lightheadedness accompanied pain. Reports hx of previous catheterization w/o stent placement. Denies CABG. Initial troponin less than 0.03. Trend 2. Aspirin 325 mg now. 81 mg daily. Lipitor 40 mg now followed by 20 mg HS. Nitroglycerin SL PRN. Echocardiogram. Cardiac diet. NPO @ midnight for a.m. nuclear pharm stress test. EKG today shows electronic atrial pacemaker with right bundle branch block and left anterior fascicular block. Will consider cardiology consult if troponins, echocardiogram, and/or stress test abnormal. Continuous telemetry. Stair-step pain medications for pain w/IV morphine for severe chest pain. Pt. to be monitored closely. Pt. discussed w/ Dr. Zendejas who is in agreement w/plan of care. Pt. is high risk for cardiac event and further morbidity based on current sx, hx of previous sx and cath, and risk factors of HTN, HLD, and current tobacco abuse. Observation. Qualifiers: Chest pain type: unspecified Qualified Code(s): R07.9 - Chest pain, unspecified (2) Dizziness Current visit: Yes Status: Acute Acute dizziness recently. Falls/safety precautions. Bilateral carotid Doppler duplex imaging. (3) COPD (chronic obstructive pulmonary disease) Current visit: Yes Status: Chronic Hx of chronic COPD. Stable. Supplemental O2 w/titration and SpO2 monitoring PRN. Qualifiers: COPD type: emphysema Emphysema type: unspecified Qualified Code(s): J43.9 - Emphysema, unspecified (4) HTN (hypertension) Current visit: Yes Status: Chronic Hx of chronic hypertension. Monitor patient in vital signs. Continue patient' s Cozaar, metoprolol, and amlodipine. Qualifiers: Hypertension type: essential hypertension Qualified Code(s): I10 - Essential (primary) hypertension (5) HLD (hyperlipidemia) Current visit: Yes Status: Chronic Hx of chronic hyperlipidemia. Continue patient's Lipitor. Lipid panel in a.m. labs. Qualifiers: Hyperlipidemia type: pure hypercholesterolemia Qualified Code(s): E78.00 - Pure hypercholesterolemia, unspecified; E78.0 - Pure hypercholesterolemia (6) Anxiety and depression Current visit: Yes Status: Chronic Hx of chronic anxiety, depression, and PTSD. Continue pts Zoloft. (7) DVT prophylaxis Current visit: Yes Status: Acute Heparin 5000 units subcutaneous every 8 for DVT prophylaxis. Monitor patient for signs of bleeding. Internal Medicine - H&P: HPI Chief complaint: Chest pain Admitted From: Emergency Dept Plans for Post Hospital Care: Home History of present illness: Mr. Godoy is a 67 year old male with medical hx of atrial fibrillation, COPD/ emphysema, HLD, HTN, and history of kidney stones in 01/2010 and 02/2010 presents from the ED with chief complaint of chest pain that began this morning and was intermittent in intensity. Patient describes pain as left-sided and sharp and stabbing pain with radiation to his left arm. Reports for total nitroglycerin to pain away. Patient given 325 mg aspirin prior to arrival ED. Chest pain with or without exertion was accompanied with diaphoresis, shortness of breath, and dizziness/lightheadedness. Reports history of catheterization without stent placement or bypass. AICD/pacemaker in place. Reports current tobacco use 3-4 cigars daily. Previous echocardiogram and stress test in 2016. Patient denies recent illness, fever, chills, nausea, vomiting, headache, changes in vision, palpitations, abdominal pain, diarrhea, constipation, numbness, tingling, pre-syncope, or syncope. Past Med Surg Social Fam HX - Past Medical History Source: patient, old records reviewed Medical history: atrial fibrillation, COPD, hyperlipidemia, hypertension, kidney stones Psychiatric history: anxiety, depression, PTSD - Past Surgical History Surgical History: cholecystectomy, herniorrhaphy, pacemaker/AICD, other - Social History Smoking Status: Current every day smoker Packs per day: 3-4 cigars/day Smokeless Tobacco Status: No Alcohol use: none Drug use: none Current living situation: Home Activity Level: Independent ambulation Recent Out of Country Travel Within the Last 8 Weeks: No Exposure or Possible Exposure to Illness During Travel: No - Family History Mother Race: Family Member Ethnicity: Non- Living Status: Age at : 62 Cause of : Colon cancer Hx Family Cardiac Disorders: Yes (HTN, heart murmur, CHF) Hx Family Cancer: Yes (Colon) Father Race: Family Member Ethnicity: Non- Living Status: Age at : 77 Cause of : AR Hx Family Cardiac Disorders: Yes (HTN, Open heart, Valve replacement, AR) Internal Medicine - H&P: Meds Ascorbic Acid [Vitamin C] 1,000 mg PO DAILY 11/25/14 [History] Cholecalciferol (Vitamin D3) [Vitamin D] 1,000 unit PO DAILY 11/25/14 [History] Gabapentin [Neurontin] 300 mg PO BID 11/25/14 [History] Losartan [Cozaar] 100 mg PO QPM 11/25/14 [History] Metoprolol XL (24 HR) Succ [Toprol XL] 50 mg PO DAILY 11/25/14 [History] SUMAtriptan succinate [Imitrex] 100 mg PO DAILY PRN 11/25/14 [History] tiZANidine [Zanaflex] 4 mg PO Q8H PRN 11/25/14 [History] Melatonin 5 mg PO HS 01/18/16 [History] Vitamin B Complex 1 each PO DAILY 01/18/16 [History] Amlodipine Besylate 2.5 mg PO DAILY 04/08/16 [History] Cranberry Fruit Extract [Cranberry] 4,000 mg PO QAM 04/08/16 [History] Dicyclomine [Bentyl] 10 mg PO QID PRN 04/08/16 [History] Fluticasone Propionate Nasal [Flonase] 50 mcg NS DAILY 04/08/16 [History] Multivitamin [Multivitamins] 1 each PO DAILY 04/08/16 [History] Aspirin [Lo-Dose Aspirin EC] 81 mg PO DAILY 04/03/17 [History] Atorvastatin Calcium [Lipitor] 20 mg PO QPM 04/03/17 [History] Gabapentin [Neurontin] 600 mg PO 2300 04/03/17 [History] Sertraline [Zoloft] 50 mg PO HS 04/03/17 [History] 3 Allergy/AdvReac Type Severity Reaction Status Date / Time latex Allergy Redness of Verified 04/03/17 14:36 Skin Cyclobenzaprine AdvReac Nausea Verified 04/03/17 14:36 [From Flexeril] methocarbamol [From Robaxin] AdvReac Nausea Verified 04/03/17 14:36 naproxen AdvReac Nausea Verified 04/03/17 14:36 tramadol AdvReac Nausea Verified 04/03/17 14:36 All Systems PM: A 10-system review of systems was performed and is negative for pertinent findings except as documented above in the HPI. - Constitutional Constitutional: no chills, no fever(s), no night sweats - EENT Eyes: no change in vision, no discharge, no pain, no photophobia Ears: no ear discharge, no ear pain, no tinnitus Nose, mouth and throat: no dysphagia, no nasal discharge, no neck pain, no sore throat - Breasts Breasts: as per HPI - Cardiovascular Cardiovascular ROS IM: as per HPI, chest pain, diaphoresis, dyspnea, dyspnea on exertion, lightheadedness, no palpitations, no syncope - Respiratory Respiratory: as per HPI, dyspnea, dyspnea on exertion, no cough, no wheezing, no excessive phlegm production - Gastrointestinal Gastrointestinal: no abdominal pain, no diarrhea, no hematemesis, no hematochezia, no melena, no nausea, no vomiting - Genitourinary Genitourinary ROS male: as per HPI - Musculoskeletal Musculoskeletal ROS IM: no numbness, no tingling - Integumentary Integumentary IM: no rash, no unusual bruising - Neurological Neurological ROS: no confusion, no convulsions, no focal weakness, no numbness, no tingling, no tremor(s) - Psychiatric Psychiatric: as per HPI, anxiety, depression, other (PTSD) - Endocrine Endocrine IM: as per HPI - Hematologic/Lymphatic Hematologic/Lymphatic: no easy bruising - Allergic/Immunologic Allergic/Immunologic: as per HPI - Constitutional Vitals: Temp Pulse Resp BP Pulse Ox 97.6 F 73 16 130/86 97 04/03/17 16:15 04/03/17 16:15 04/03/17 16:15 04/03/17 16:15 04/03/17 16:15 General appearance: Present: cooperative, A&O X 3, pleasant, no acute distress, answers questions appropriately - Head Head exam: Present: atraumatic, normocephalic - Eye Eye exam: Present: PERRL, conjuntiva pink, sclera anicteric Pupils: Present: PERRL - ENT ENT exam: Present: normal exam - Neck Neck exam general surgery: Present: normal inspection, supple, trachea midline. Absent: lymphadenopathy - Respiratory Respiratory exam: Present: CTAB. Absent: accessory muscle use, rales, rhonchi, wheezes - Cardiovascular Cardiovascular exam: Present: irregular rhythm (Electronic atrial pacemaker) - GI/Abdominal GI/Abdominal exam: Present: normal bowel sounds, soft, no peritoneal signs. Absent: distended, tenderness - Rectal Rectal exam: Present: deferred - Additional comments: exam deferred. - Extremities Exam Extremities exam: Present: warm, radial pulses palpable and symmetrical. Absent : calf tenderness, cyanotic, pedal edema - Back Exam Back exam: Present: normal inspection - Neurological Exam Neurological exam: Present: CN II-XII intact, oriented X3, no focal deficits. Absent: pronater drift, facial droop, speech deficit - Psychiatric Psychiatric exam: Present: normal affect, normal mood - Skin Skin exam: Present: dry, intact Internal Med - H&P Results - Labs CBC & Chem 7: 04/03/17 12:06 04/03/17 12:06 - EKG Data Prior EKG available for review: yes When compared to previous EKG: there are significant changes EKG comments: 04/03/17 20:32 EKG dated 12/04/15 shows demand AV pacing. EKG dated 04/03/17 shows electronic atrial pacemaker with right bundle branch block and left anterior fascicular block. - Diagnostic Studies Chest x-ray Additional comments: Impressions Chest X-Ray 04/03/17 11:26 IMPRESSION: Chronic versus recurrent densities at the lung bases may be related to subsegmental atelectasis or scar. Otherwise unremarkable chest. D/ / Thony Alicea / Thony Alicea Interpreting Provider: Thony Alicae <Jhonathan Zendejas - Last Filed: 04/03/17 21:47> Date of Encounter: 04/03/17 Internal Medicine - H&P: HPI History of present illness: Mr. Godoy is a 67 year old male All Systems PM: A 10-system review of systems was performed and is negative for pertinent findings except as documented above in the HPI. - Constitutional Vitals: Temp Pulse Resp BP Pulse Ox 97.4 F L 77 16 123/83 96 04/03/17 18:44 04/03/17 18:44 04/03/17 18:44 04/03/17 18:44 04/03/17 18:44 Internal Med - H&P Results - Labs CBC & Chem 7: 04/03/17 12:06 04/03/17 12:06 Labs: Cardiac Enzymes 04/03/17 Range/Units 18:02 Troponin I < 0.03 (< 0.04) ng/mL - Attending Attestation I have personally performed a face to face evaluation on this patient. I have reviewed and agree with the care plan. History and Exam by me shows: Patient presented to the hospital with chest pain. Currently pain has resolved. On exam he is in no acute distress awake alert oriented. Heart is regular normal S1-S2, lungs are clear. Extremities have no edema. EKG was personally reviewed shows ventricularly paced rhythm.. Per EKG shows atrial paced rhythm with a right bundle branch block. Plan: Chest pain rule out ACS. Trend troponin. Obtain stress test and echocardiogram in the morning.
[2017-04-03] MEDS ORDERED: Melatonin 3 MG TABLET PO SCH (21:00)
[2017-04-03] MEDS: *HR* Heparin 5,000 UNIT/ML VIAL SQ SCH (21:42)
[2017-04-03] MEDS: Gabapentin 300 MG CAPSULE PO SCH (21:43)
[2017-04-03] MEDS ORDERED: Gabapentin 300 MG CAPSULE PO SCH (23:00)
[2017-04-04 01:37] LABS: Basophils # 0.1 K/mcL (0.0-0.2); Basophils % 0.7 %; Eosinophils # 0.4 K/mcL (0.0-0.6); Eosinophils % 4.4 %; Hematocrit 47.4 % (37.5-50.1); Immature Granulocytes % 0.4 % (0-4); Lymphocytes # 3.1 K/mcL (0.6-4.6); Lymphocytes % 38.4 %; Mean Corpuscular HGB Conc 33.8 g/dL (31.6-35.5); Mean Corpuscular Hemoglobin 32.4 pg (28.0-33.3); Monocytes # 0.8 K/mcL (0.0-1.3); Monocytes % 10.1 %; Neutrophils # 3.7 K/mcL (1.6-8.9); Platelet Count 166 K/mcL (140-400); Red Blood Count 4.94 M/mcL (4.19-5.50); Red Cell Distribution Width 13.8 % (11.5-14.5)
[2017-04-04 01:43] LABS: Hemoglobin A1C 5.1 %
[2017-04-04 01:57] LABS: Alanine Aminotransferase 26 Units/L (7-52); Albumin 3.5 g/dL (3.5-5.7); Albumin/Globulin Ratio 1.5 (1.1-2.2); Alkaline Phosphatase 75 Units/L (34-104); Aspartate Amino Transferase 19 Units/L (13-39); BUN/Creatinine Ratio 15 (6-26); Bilirubin,Total 0.6 mg/dL (0.3-1.0); Blood Urea Nitrogen 15 mg/dL (8-23); Calcium 8.8 mg/dL (8.6-10.3); Carbon Dioxide 24 mEq/L (23-29); Chloride 112 mEq/L (98-107); Chol/HDL Ratio 3.4 (0-4.9); Cholesterol 121 mg/dL (< 200); Globulin 2.3 g/dL (2.4-3.5); Glucose 122 mg/dL (70-105); HDL Cholesterol 36 mg/dL (40-59); LDL Cholesterol,Calculated 66 mg/dL (0-99); Osmolality,Calculated 294 (280-300); Sodium 141 mEq/L (136-145); Total Protein 5.8 g/dL (6.4-8.9); Triglycerides 93 mg/dL (< 150); eGFR For African Americans > 60 (> 60); eGFR For Non-African Americans > 60 (> 60)
[2017-04-04] MEDS: *HR* Heparin 5,000 UNIT/ML VIAL SQ SCH ×2 (06:10→13:03)
[2017-04-04] MEDS ORDERED: Regadenoson 0.4 MG/5 ML SYRINGE IVP ONE (06:11)
[2017-04-04] MEDS ORDERED: CRANBERRY FRUIT EXTRACT PO SCH (09:00)
[2017-04-04] MEDS ORDERED: Multivit/Ca/Min/Fe/FA 1 TAB TABLET PO SCH (09:00)
[2017-04-04] MEDS ORDERED: Aspirin Enteric Coated 81 MG Tablet PO SCH (09:00)
[2017-04-04] MEDS ORDERED: Cholecalciferol (D-3) 1,000 UNIT TABLET PO SCH (09:00)
[2017-04-04] MEDS ORDERED: amLODIPine 5 MG TABLET PO SCH (09:00)
[2017-04-04] MEDS ORDERED: Ascorbic Acid 500 MG TABLET PO SCH (09:00)
[2017-04-04] MEDS ORDERED: Vitamin B Complex/Vit C/Vit E 1 EACH TABLET PO SCH (09:00)
[2017-04-04] MEDS ORDERED: Metoprolol XL (24 HR) Succ 50 MG TAB.ER.24H PO SCH (09:00)
[2017-04-04] MEDS ORDERED: Fluticasone Propionate Nasal 50 MCG/SPRAY BOTTLE NS SCH (09:00)
[2017-04-04] MEDS: Gabapentin 300 MG CAPSULE PO SCH (13:02)
[2017-04-04 16:49] VITALS: BP 117/78
--- NOTE | 2017-04-04 17:03 | Discharge Summary ---
Date of Encounter: 04/04/17 Time of Encounter: 10:10 - Discharge Diagnosis (1) Chest pain Priority: Primary Status: Acute Comments: Acute chest pain, sudden onset while at PCP office. Patient describes as left- sided with radiation to left arm and rates pain as sharp and stabbing. States for nitroglycerin in the ER alleviated pain. No alleviating or aggravating factors. Patient reports associated diaphoresis, shortness of breath, dizziness with the pain. Reports hx of previous catheterization w/o stent placement. Troponins negative. EKG today shows electronic atrial pacemaker with right bundle branch block and left anterior fascicular block. Stress is negative for ischemia or infarct, gated EF of 70%. Echocardiogram showed LVEF of 6065%, mild LV DD, mild TR. Pt states that he just saw Dr. Godinez, cardiology, 4 days ago and will call Thursday for a follow up. Qualifiers: Chest pain type: unspecified Qualified Code(s): R07.9 - Chest pain, unspecified (2) Dizziness Priority: Secondary Status: Acute Comments: Pt reports dizziness with chest pain, as well as dizziness intermittently over the last 2-3 weeks. Denies falls. Echo with pEF, mild TR. Stress negative for ischemia or infarct, gated EF 70%, Carotids normal bilaterally. Pt denies dizziness currently. He denies recent illneess or ear pain. Labs stable and WNL. Vitals are also stable and WNL. Etiology unclear, could be mild dehydration through poor po intake vs hypotension. Pt will follow up with PCP this coming week. (3) COPD (chronic obstructive pulmonary disease) Priority: Secondary Status: Chronic Comments: No acute exacerbation. Lungs clear throughout. Pt denies new cough, chills, fever, rigors. Qualifiers: COPD type: emphysema Emphysema type: unspecified Qualified Code(s): J43.9 - Emphysema, unspecified (4) HLD (hyperlipidemia) Priority: Secondary Status: Chronic Comments: Chronic. Continue Lipitor. Qualifiers: Hyperlipidemia type: pure hypercholesterolemia Qualified Code(s): E78.00 - Pure hypercholesterolemia, unspecified; E78.0 - Pure hypercholesterolemia (5) HTN (hypertension) Priority: Secondary Status: Chronic Comments: Chronic. Continue home medications. Qualifiers: Hypertension type: essential hypertension Qualified Code(s): I10 - Essential (primary) hypertension (6) DVT prophylaxis Priority: Secondary Status: Acute Comments: Heparin SQ TID. Pt was ambulatory - Discharge Medications Home Medications: Ascorbic Acid [Vitamin C] 1,000 mg PO DAILY 11/25/14 [History] Cholecalciferol (Vitamin D3) [Vitamin D] 1,000 unit PO DAILY 11/25/14 [History] Gabapentin [Neurontin] 300 mg PO BID 11/25/14 [History] Losartan [Cozaar] 100 mg PO QPM 11/25/14 [History] Metoprolol XL (24 HR) Succ [Toprol XL] 50 mg PO DAILY 11/25/14 [History] SUMAtriptan succinate [Imitrex] 100 mg PO DAILY PRN 11/25/14 [History] tiZANidine [Zanaflex] 4 mg PO Q8H PRN 11/25/14 [History] Melatonin 5 mg PO HS 01/18/16 [History] Vitamin B Complex 1 each PO DAILY 01/18/16 [History] Amlodipine Besylate 2.5 mg PO DAILY 04/08/16 [History] Cranberry Fruit Extract [Cranberry] 4,000 mg PO QAM 04/08/16 [History] Dicyclomine [Bentyl] 10 mg PO QID PRN 04/08/16 [History] Fluticasone Propionate Nasal [Flonase] 50 mcg NS DAILY 04/08/16 [History] Multivitamin [Multivitamins] 1 each PO DAILY 04/08/16 [History] Aspirin [Lo-Dose Aspirin EC] 81 mg PO DAILY 04/03/17 [History] Atorvastatin Calcium [Lipitor] 20 mg PO QPM 04/03/17 [History] Gabapentin [Neurontin] 600 mg PO 2300 04/03/17 [History] Sertraline [Zoloft] 50 mg PO HS 04/03/17 [History] Allergies/Adverse Reactions: 3 Allergy/AdvReac Type Severity Reaction Status Date / Time latex Allergy Redness of Verified 04/03/17 14:36 Skin Cyclobenzaprine AdvReac Nausea Verified 04/03/17 14:36 [From Flexeril] methocarbamol [From Robaxin] AdvReac Nausea Verified 04/03/17 14:36 naproxen AdvReac Nausea Verified 04/03/17 14:36 tramadol AdvReac Nausea Verified 04/03/17 14:36 Procedures/tests Complete & Pending: Procedures Performed prior 72 hours Category Date Time Status NM minda perf SPECT multi [NM] Routine Exams 04/04/17 06:30 Taken EV carotid duplex imaging BI Routine Y 04/04/17 17:51 Completed EV echocardiogram Routine Y 04/04/17 17:46 Completed SP pharm nuclear stress Routine Y 04/04/17 11:00 Completed Date of admission: 04/03/17 14:44 Primary care physician: Tai Bernal MD Consults: 04/03/17 17:39 Consult to [employer] Operator [CONS] Routine Reason for SW Consult: Please assess patient for possible home needs for post -discharge planning. Discharging clinician: Kelin Og Anticipated date of discharge: 04/04/17 - Patient Status Disposition: Home, Self-Care Condition: Good Functional capacity at discharge: independent ambulation Overall status at discharge: patient is back to baseline - Discharge Instructions Follow Up With: Tai Bernal MD [Primary Care Provider] - Additional Instructions: Please follow-up with your primary care provider in the next 7-10 days for recheck. Also please follow up with cardiology for recheck. Resuming her normal home medications. Resume her normal diet and activities as tolerated. Return to the emergency department as needed for any other problems or concerns , or if symptoms return or worsen. - Diet and Activity Activity: increase activity as tolerated Diet: advance to your usual diet Hospital course: Mr. Godoy is a 67 year old male - Time Spent with Patient Total time spent providing and/or coordinating discharge services: - Constitutional Vitals: Temp Pulse Resp BP Pulse Ox 98.0 F 73 16 117/78 95 04/04/17 16:44 04/04/17 16:44 04/04/17 16:44 04/04/17 16:44 04/04/17 16:44 General appearance: Present: cooperative, A&O X 3, pleasant, no acute distress, answers questions appropriately - Head Head exam: Present: atraumatic, normal inspection, normocephalic - Eye Eye exam: Present: normal appearance, conjuntiva pink, sclera anicteric - Neck Neck exam general surgery: Present: supple, trachea midline. Absent: lymphadenopathy, tenderness - Respiratory Respiratory exam: Present: decreased breath sounds, CTAB. Absent: accessory muscle use, rales, rhonchi, wheezes - Cardiovascular Cardiovascular exam: Present: RRR, +S1, +S2. Absent: diastolic murmur, gallop, rubs, systolic murmur - GI/Abdominal GI/Abdominal exam: Present: normal bowel sounds, soft. Absent: distended, tenderness - Extremities Exam Extremities exam: Present: normal capillary refill, normal inspection, warm, radial pulses palpable and symmetrical. Absent: calf tenderness, cyanotic, pedal edema, tenderness - Neurological Exam Neurological exam: Present: alert, oriented X3, no focal deficits, strengths equal and symetr throughout. Absent: facial droop, speech deficit - Skin Skin exam: Present: dry, intact, normal color, warm. Absent: rash
--- NOTE | 2017-04-05 08:40 | Electrocardiograph Report ---
[facility] [employer] 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
== END 2017-04-04 17:38 | disposition home or self-care (01) ==
LOC: 3BNU 11:18 → EMEROO 11:18 → 3BNU 15:33
PROVIDERS: ADMIT Registered Nurse; ATTEND Registered Nurse

== ENCOUNTER 2018-06-06 22:04 | Observation (INO) ==
[2018-06-06] MEDS ORDERED: *HR* OxyCODONE Immed Rel 5 MG TABLET PO STA (22:50)
[2018-06-06] MEDS ORDERED: Ondansetron ODT 4 MG TAB.RAPDIS SL ONE (22:51)
[2018-06-06] MEDS ORDERED: Isovue-370 500 ML BOTTLE IVP ONE (22:52)
--- NOTE | 2018-06-06 22:57 | Emergency Department Note ---
Disposition Clinical Impression: Pancreatitis Qualifiers: Chronicity: acute Pancreatitis type: unspecified pancreatitis type Acute pancreatitis complication: unspecified Qualified Code(s): K85.90 - Acute pancreatitis without necrosis or infection, unspecified Disposition: Admitted As Inpatient Condition: Fair Time of Disposition: 01:24 Abdominal Pain HPI - General Chief Complaint: ED Abdominal Pain Stated Complaint: liver cancer, severe abdominal pain Time Seen by Provider: 06/06/18 22:26 Source: patient Mode of arrival: private vehicle Limitations: no limitations Nursing Notes Reviewed: Yes Vital Signs Reviewed: Yes - History of Present Illness HPI Narrative: Patient is a 68-year-old male with terminal liver cancer but states that he has had intermittent left-sided abdominal pain since Thursday. He states that tonight it became unbearable. Patient has been in contact with his oncologist who recommended that he try lidocaine patches, patient has 2 lidocaine patches applied but he states the breakthrough pain is approximately 10 out of 10. 8 is very sharp in nature, does not radiate, is not associated with eating or bowel movements. Patient is denying fevers or chills but does say that he has been sweaty. Patient denies chest pain, endorses shortness of breath. Patient is endorsing mild nausea, denies vomiting. Denies diarrhea or constipation. Denies numbness or tingling. Denies weakness. Pain Scale: 10 - Related Data Home Medications Medication Instructions Recorded Confirmed RX: Ascorbic Acid [Vitamin C] 1,000 mg PO DAILY 11/25/14 05/31/18 RX: Cholecalciferol (Vitamin D3) 1,000 unit PO DAILY 11/25/14 05/31/18 [Vitamin D] RX: Gabapentin [Neurontin] 300 mg PO BID 11/25/14 05/31/18 RX: Losartan [Cozaar] 100 mg PO QPM 11/25/14 05/31/18 RX: Metoprolol XL (24 HR) Succ 50 mg PO DAILY 11/25/14 05/31/18 [Toprol XL] RX: SUMAtriptan succinate [Imitrex] 100 mg PO DAILY PRN 11/25/14 05/31/18 RX: tiZANidine [Zanaflex] 4 mg PO Q8H PRN 11/25/14 05/31/18 RX: Melatonin 5 mg PO HS 01/18/16 05/31/18 RX: Vitamin B Complex 1 each PO DAILY 12/02/16 04/15/19 RX: Amlodipine Besylate 2.5 mg PO DAILY 04/08/16 05/31/18 RX: Cranberry Fruit Extract 4,000 mg PO QAM 04/08/16 05/31/18 [Cranberry] RX: Dicyclomine [Bentyl] 10 mg PO QID PRN 04/08/16 05/31/18 RX: Fluticasone Propionate Nasal 50 mcg NS DAILY 04/08/16 05/31/18 [Flonase] RX: Multivitamin [Multivitamins] 1 each PO DAILY 04/08/16 05/31/18 RX: Aspirin [Lo-Dose Aspirin EC] 81 mg PO DAILY 04/03/17 05/31/18 RX: Atorvastatin Calcium [Lipitor] 20 mg PO QPM 04/03/17 05/31/18 RX: Gabapentin [Neurontin] 600 mg PO 2300 04/03/17 05/31/18 RX: Sertraline [Zoloft] 50 mg PO HS 04/03/17 05/31/18 Previous Rx's Medication Instructions Recorded Sulfamethoxazole/Trimeth DS 1 each PO BID #14 tablet 05/31/18 [Bactrim DS] Allergies Allergy/AdvReac Type Severity Reaction Status Date / Time latex Allergy Redness of Verified 06/06/18 22:46 Skin Cyclobenzaprine AdvReac Nausea Verified 06/06/18 22:46 [From Flexeril] methocarbamol [From Robaxin] AdvReac Nausea Verified 06/06/18 22:46 naproxen AdvReac Nausea Verified 06/06/18 22:46 tramadol AdvReac Nausea Verified 06/06/18 22:46 Review of Systems: All systems ED: reviewed and negative except as stated. Constitutional: Denies: fever, chills Reports: diaphoresis ENT ED: Denies: ear pain, throat pain Cardiovascular: Denies: chest pain, palpitations Respiratory: Denies: cough, Reports: dyspnea Gastrointestinal: Denies: vomiting, diarrhea, constipation Reports: abdominal pain, nausea Genitourinary: Denies: urgency, dysuria, frequency Musculoskeletal: Denies: back pain, neck pain Integumentary: Denies: rash, abrasion Neurological: Denies: headache, weakness, numbness, paresthesias Psychiatric: Denies: anxiety, depression Endocrine: Denies: fatigue, heat or cold intolerance Hematological/Lymphatic: Denies: easy bleeding, easy bruising Allergic/Immunologic: Denies: facial swelling, urticaria Abdominal Pain PMH - Past Medical History Medical history: Reports: cancer, COPD, hypertension Male Surgical History: Reports: pacemaker/AICD Psychiatric history: Reports: anxiety, depression, PTSD - Social History Smoking status: Current every day smoker Alcohol use: Reports: none Drug use: Reports: none Physical Exam General: A&O x 3. No acute distress. Well developed, well nourished. Head: atraumatic, normocephalic. ENT: No conjunctival injection, PERRLA. EOMI. Oropharynx non- erythematous. mucous membranes moist. Neuro: No focal deficits, no speech deficit, no facial droop, mentating well. BUE/BLE Str 5/5. Pulm: Lungs CTAB A/P. No wheezes, rales, ronchi. Cardio: Tachycardic. Chest not tender to palpation. Abd: Mildly tense, distended, exquisitely tender in LUQ, LLQ, suprapubic areas. No erythema, ecchymosis, scars, rashes. No bowel sounds appreciated in any quadrant. Extremities: Radial pulses 2+ neha, dorsalis pedis/posterior tibialis 2+ neha. No LE edema. No cyanosis, clubbing. Skin: warm, dry, intact. No rashes. Psych: Appropriate mood and affect. Answers questions appropriately. Cooperative with exam. - General Limitations: no limitations General appearance: anxious Course Course Narrative: Ddx includes but is not limited to: pancreatitis, gastritis, mesenteric ischemia, new mets, cancer complication. - Reevaluation(s) Reevaluation #1: Pts pain was initially well controlled, but on recheck, pt is stating that his pain is increasing again. Will control. Informed patient that he will need to be admitted for further treatment. Time: 01:02 Vital Signs Temperature 98.1 F 06/06/18 22:06 Pulse Rate 98 06/06/18 22:06 Respiratory Rate 20 06/06/18 22:06 Blood Pressure 124/80 06/06/18 22:06 O2 Sat by Pulse Oximetry 93 06/06/18 22:06 Temperature 98.1 F 06/06/18 22:06 Pulse Rate 71 06/07/18 00:00 Respiratory Rate 20 06/07/18 00:00 Blood Pressure 136/90 06/07/18 00:00 O2 Sat by Pulse Oximetry 94 06/07/18 00:00 Oxygen Delivery Oxygen Delivery Room Air Abdominal Pain - MDM Narrative Medical decision making narrative: Pts CT was concerning for pancreatitis and lipase was elevated at 1766. PT was offered admission here or transfer to [facility], and pt expressed desire to remain here if possible. Pt was treated in the department with IVF, pain control, and was made NPO. Pt was admitted to hospitalist, Dr. Greene, who agreed to accept the patient to his service. Patient was given an opportunity to ask questions at bedside and all of their concerns were addressed. Patient verbalized understanding and agreement with plan of care. Pt remained stable while in the department. - Medical Records Medical records reviewed: Yes I reviewed the patient's medical records. - Lab Data Lab results reviewed: Yes I reviewed the patient's lab results. Result diagrams: 06/06/18 23:02 06/06/18 23:02 Lab Results 06/06/18 06/06/18 06/06/18 Range/Units 23:02 23:02 23:02 WBC 18.1 H (4.3-11.1) K/mcL RBC 5.88 H (4.19-5.50) M/mcL Hgb 16.2 (12.9-16.9) g/dL Hct 49.5 (37.5-50.1) % MCV 84.2 (83.0-100.0) fL MCH 27.6 L (28.0-33.3) pg MCHC 32.7 (31.6-35.5) g/dL RDW 20.2 H (11.5-14.5) % Plt Count 389 (140-400) K/mcL MPV 10.4 (9.4-12.4) fL Immature Gran % 3.5 (0-4) % Seg Neutrophils % 82.6 % Lymphocytes % 7.9 % Monocytes % 5.5 % Eosinophils % 0.1 % Basophils % 0.4 % Neutrophils # 14.9 H (1.6-8.9) K/mcL Lymphocytes # 1.4 (0.6-4.6) K/mcL Monocytes # 1.0 (0.0-1.3) K/mcL Eosinophils # 0.0 (0.0-0.6) K/mcL Basophils # 0.1 (0.0-0.2) K/mcL PT 14.8 H (9.4-12.1) Seconds INR 1.3 APTT 34.4 (26.0-36.0) Seconds Sodium 140 (136-145) mEq/L Potassium 4.5 (3.5-5.1) mEq/L Chloride 108 H (98-107) mEq/L Carbon Dioxide 22 L (23-29) mEq/L BUN 33 H (8-23) mg/dL Creatinine 0.68 L (0.70-1.30) mg/dL Est GFR ( Amer) > 60 (> 60) Est GFR (Non-Af Amer) > 60 (> 60) BUN/Creatinine Ratio 49 H (6-26) Glucose 193 H (70-105) mg/dL Calculated Osmolality 303 H (280-300) Lactic Acid (0.5-2.2) mmol/L Calcium 9.4 (8.6-10.3) mg/dL Total Bilirubin 0.7 (0.3-1.0) mg/dL Direct Bilirubin 0.3 H (0.0-0.2) mg/dL Indirect Bilirubin 0.4 (0.0-1.2) mg/dL AST 53 H (13-39) Units/L ALT 96 H (7-52) Units/L Alkaline Phosphatase 280 H (34-104) Units/L Lactate Dehydrogenase 377 H (140-271) Units/L Serum Total Protein 6.1 L (6.4-8.9) g/dL Albumin 3.0 L (3.5-5.7) g/dL Globulin 3.1 (2.4-3.5) g/dL Albumin/Globulin Ratio 1.0 L (1.1-2.2) Lipase 1766 H (11-82) Units/L 06/06/18 Range/Units 23:02 WBC (4.3-11.1) K/mcL RBC (4.19-5.50) M/mcL Hgb (12.9-16.9) g/dL Hct (37.5-50.1) % MCV (83.0-100.0) fL MCH (28.0-33.3) pg MCHC (31.6-35.5) g/dL RDW (11.5-14.5) % Plt Count (140-400) K/mcL MPV (9.4-12.4) fL Immature Gran % (0-4) % Seg Neutrophils % % Lymphocytes % % Monocytes % % Eosinophils % % Basophils % % Neutrophils # (1.6-8.9) K/mcL Lymphocytes # (0.6-4.6) K/mcL Monocytes # (0.0-1.3) K/mcL Eosinophils # (0.0-0.6) K/mcL Basophils # (0.0-0.2) K/mcL PT (9.4-12.1) Seconds INR APTT (26.0-36.0) Seconds Sodium (136-145) mEq/L Potassium (3.5-5.1) mEq/L Chloride (98-107) mEq/L Carbon Dioxide (23-29) mEq/L BUN (8-23) mg/dL Creatinine (0.70-1.30) mg/dL Est GFR ( Amer) (> 60) Est GFR (Non-Af Amer) (> 60) BUN/Creatinine Ratio (6-26) Glucose (70-105) mg/dL Calculated Osmolality (280-300) Lactic Acid 1.8 (0.5-2.2) mmol/L Calcium (8.6-10.3) mg/dL Total Bilirubin (0.3-1.0) mg/dL Direct Bilirubin (0.0-0.2) mg/dL Indirect Bilirubin (0.0-1.2) mg/dL AST (13-39) Units/L ALT (7-52) Units/L Alkaline Phosphatase (34-104) Units/L Lactate Dehydrogenase (140-271) Units/L Serum Total Protein (6.4-8.9) g/dL Albumin (3.5-5.7) g/dL Globulin (2.4-3.5) g/dL Albumin/Globulin Ratio (1.1-2.2) Lipase (11-82) Units/L - Radiology Data Radiology results reviewed: Yes I reviewed the patient's radiology results. Abdomen/Pelvis CT 06/07/18 00:00 IMPRESSION: 1. Very large necrotic right hepatic lobe mass measures slightly larger than previously concerning for superinfected lesion. 2. Infrarenal AAA measuring 4 cm. Recommend vascular surgery consultation if not yet performed and annual imaging surveillance*. 3. Small volume abdominopelvic ascites is probably reactive. 4. Peripancreatic changes concerning for pancreatitis. Similar-appearing small peripancreatic fluid collections may be related to pseudocyst formation. * Managing Abdominal Aortic Aneurysms 2.6-2.9 cm: Every 5 years* 3.0-3.4 cm: Every 3 years. 3.5-3.9 cm: Every 1 year. 4.0-4.4 cm: Every 1 year. Recommend vascular consultation. 4.5-5.4 cm: Every 6 months. Recommend vascular consultation. Greater than or equal to 5.5 cm: Referral to vascular surgeon. *For abdominal aortas with maximum diameter of 2.6-2.9 cm meeting criteria for AAA (>50% of proximal normal segment). Reference: J Vasc Surg. 2009 Nov;50(4 Suppl):S2-49 Report D/ / Thony Alicea / Thony Alicea Interpreting Provider: Thony Alicea - EKG Data EKG attestation: Yes I reviewed and interpreted this EKG. EKG results narrative: HR 74, rhythm atrial pacing. No old EKG available for comparison. ST depression noted in V1-V2. No ST segment elevation noted. Attestation Statement - Attestation Attestation: Dr. Paris note: Patient was seen in conjunction with emergency resident Dr. Meeks. Please see her charting for complete documentation. I Spent [id number] time with the patient and I agree with the patient's treatment and disposition. Lipase level and CT findings reviewed; Pain present for 4-5 days; no emesis. Patient started to eat and drink. Pain mildly worse today. History of hepatitis one time prior. Cancer was being followed at [facility] by an oncologist, but patient requests admission here for pancreatitis as he is well aware there is no surgical intervention for his advanced liver disease. No indication for tertiary care at this time. Patient was offered transfer to [facility] since that is where much of his cancer treatment has been and he elects to stay here aware of all risks and benefits
[2018-06-06 23:21] LABS: Basophils # 0.1 K/mcL (0.0-0.2); Basophils % 0.4 %; Eosinophils % 0.1 %; Hematocrit 49.5 % (37.5-50.1); Hemoglobin 16.2 g/dL (12.9-16.9); Immature Granulocytes % 3.5 % (0-4); Lymphocytes # 1.4 K/mcL (0.6-4.6); Lymphocytes % 7.9 %; Mean Corpuscular HGB Conc 32.7 g/dL (31.6-35.5); Mean Corpuscular Hemoglobin 27.6 pg (28.0-33.3); Mean Corpuscular Volume 84.2 fL (83.0-100.0); Mean Platelet Volume 10.4 fL (9.4-12.4); Monocytes % 5.5 %; Neutrophils # 14.9 K/mcL (1.6-8.9); Platelet Count 389 K/mcL (140-400); Red Blood Count 5.88 M/mcL (4.19-5.50); Red Cell Distribution Width 20.2 % (11.5-14.5); Segmented Neutrophils % 82.6 %
[2018-06-06 23:28] LABS: INR 1.3; Prothrombin Time 14.8 Seconds (9.4-12.1)
[2018-06-06 23:30] LABS: Activated Partial Thrombo Time 34.4 Seconds (26.0-36.0)
[2018-06-07] LABS: Alanine Aminotransferase 96 Units/L (7-52); Alkaline Phosphatase 280 Units/L (34-104); Aspartate Amino Transferase 53 Units/L (13-39); BUN/Creatinine Ratio 49 (6-26); Bilirubin,Direct 0.3 mg/dL (0.0-0.2); Bilirubin,Indirect 0.4 mg/dL (0.0-1.2); Bilirubin,Total 0.7 mg/dL (0.3-1.0); Blood Urea Nitrogen 33 mg/dL (8-23); Calcium 9.4 mg/dL (8.6-10.3); Carbon Dioxide 22 mEq/L (23-29); Chloride 108 mEq/L (98-107); Globulin 3.1 g/dL (2.4-3.5); Glucose 193 mg/dL (70-105); Lipase 1766 Units/L (11-82); Osmolality,Calculated 303 (280-300); Potassium 4.5 mEq/L (3.5-5.1); Sodium 140 mEq/L (136-145); Total Protein 6.1 g/dL (6.4-8.9); eGFR For Non-African Americans > 60 (> 60)
[2018-06-07] MEDS ORDERED: 0.9 % Sodium Chloride 1,000 ML IVC ONE (00:27)
[2018-06-07 00:56] LABS: Lactate Dehydrogenase 377 Units/L (140-271)
[2018-06-07] MEDS ORDERED: *HR* HYDROmorphone (PF) 1 MG/ML SYRINGE IVP ONE (01:01)
[2018-06-07] MEDS ORDERED: *HR* OxyCODONE Immed Rel 5 MG TABLET PO PRN (03:41)
[2018-06-07] MEDS ORDERED: 0.9 % Sodium Chloride 1,000 ML IVC SCH (03:45)
[2018-06-07] MEDS: *HR* Promethazine 25 MG/ML VIAL IVP PRN ×2 (03:55→12:46)
[2018-06-07] MEDS ORDERED: Naloxone 0.4 MG/ML INJ IVP PRN (07:31)
[2018-06-07] MEDS ORDERED: traMADol 50 MG TABLET PO PRN (07:31)
[2018-06-07] MEDS ORDERED: Dextrose Gel 15 GM/37.5 ML TUBE PO PRN ×2 (07:34)
[2018-06-07] MEDS ORDERED: D5% in Water 1,000 ML IVC PRN (07:34)
[2018-06-07] MEDS ORDERED: *HR* Dextrose 50 % in Water (Syg) 50 ML SYRINGE IVP PRN (07:34)
[2018-06-07] MEDS ORDERED: D5% in 0.9% NACL 1,000 ML IVC SCH (07:45)
[2018-06-07] MEDS: *HR* OxyCODONE Immed Rel 5 MG TABLET PO PRN ×3 (08:43→16:46)
[2018-06-07] MEDS: Piperacillin/Tazobactam 3.375 GM in 0.9 % Sodium Chloride Mini Bag 100 ML IVPB SCH ×2 (08:45→16:40)
[2018-06-07] MEDS ORDERED: Pantoprazole 40 MG VIAL IVP SCH (09:00)
--- NOTE | 2018-06-07 09:17 | Internal Med History&Physical ---
Date of Encounter: 06/07/18 Time of Encounter: 09:09 Internal Medicine - H&P: HPI Chief complaint: abdominal pain. nausea and vomiting Plans for Post Hospital Care: Home History of present illness: Mr. Godoy is a 68 year old male PMH of liver CA, HTN and COPD/emphysema. He presented to the ED due to abdominal pain. He report having 10/10 sharp constant abdominal pain since Thursday. Reports at the beginning the patient started in his LUQ, radiating to his left should, and was mildly alleviated by pain medication at home, but stated that since yesterday the pain does not improve with his pain medication. Reports nausea, but denies vomiting episodes. Reports poor oral intake since Thursday due to abdominal pain. denies fever/chills. Re ports mild shortness of breath at rest which is chronic. Reports that on May 20 he received his first round of chemotherapy pellets (Chemoembolisation (TACE)?, at the [facility] and he is supposed to have radiation therapy sometime in the near future. In the ED patient was found to have a pancreatitis and the hospitalist team was called for admission. Past Med Surg Social Fam HX - Past Medical History Medical history: cancer, COPD, hypertension Additional medical history: emphysema Psychiatric history: anxiety, depression, PTSD - Past Surgical History Surgical History: cholecystectomy, herniorrhaphy, pacemaker/AICD, other Additional surgical history: Heart Cath 2011. Carpal Tunnel bilateral hands. right shoulder surgery - Social History Smoking Status: Current every day smoker Smokeless Tobacco Status: No Alcohol use: none Drug use: none - Family History Mother Family Member Ethnicity: Non- Living Status: Hx Family Cardiac Disorders: Yes (HTN, heart murmur, CHF) Hx Family Cancer: Yes (Colon) Hx Family Endocrine Disorder: Yes (DM) Father Family Member Ethnicity: Non- Living Status: Hx Family Cardiac Disorders: Yes (HTN, Open heart, Valve replacement, [place]) Hx Family Respiratory Disorders: Yes Internal Medicine - H&P: Meds Ascorbic Acid [Vitamin C] 1,000 mg PO DAILY 11/25/14 [History] Cholecalciferol (Vitamin D3) [Vitamin D] 1,000 unit PO DAILY 11/25/14 [History] Gabapentin [Neurontin] 300 mg PO BID 11/25/14 [History] Losartan [Cozaar] 100 mg PO QPM 11/25/14 [History] Metoprolol XL (24 HR) Succ [Toprol XL] 50 mg PO DAILY 11/25/14 [History] SUMAtriptan succinate [Imitrex] 100 mg PO DAILY PRN 11/25/14 [History] tiZANidine [Zanaflex] 4 mg PO Q8H PRN 11/25/14 [History] Melatonin 5 mg PO HS 01/18/16 [History] Vitamin B Complex 1 each PO DAILY 01/18/16 [History] Amlodipine Besylate 2.5 mg PO DAILY 04/08/16 [History] Cranberry Fruit Extract [Cranberry] 4,000 mg PO QAM 04/08/16 [History] Dicyclomine [Bentyl] 10 mg PO QID PRN 04/08/16 [History] Fluticasone Propionate Nasal [Flonase] 50 mcg NS DAILY 04/08/16 [History] Multivitamin [Multivitamins] 1 each PO DAILY 04/08/16 [History] Aspirin [Lo-Dose Aspirin EC] 81 mg PO DAILY 04/03/17 [History] Atorvastatin Calcium [Lipitor] 20 mg PO QPM 04/03/17 [History] Gabapentin [Neurontin] 600 mg PO 2300 04/03/17 [History] Sertraline [Zoloft] 50 mg PO HS 04/03/17 [History] Sulfamethoxazole/Trimeth DS [Bactrim DS] 1 each PO BID #14 tablet 05/31/18 [Rx] Allergy/AdvReac Type Severity Reaction Status Date / Time latex Allergy Redness of Verified 06/06/18 22:46 Skin Cyclobenzaprine AdvReac Nausea Verified 06/06/18 22:46 [From Flexeril] methocarbamol [From Robaxin] AdvReac Nausea Verified 06/06/18 22:46 naproxen AdvReac Nausea Verified 06/06/18 22:46 tramadol AdvReac Nausea Verified 06/06/18 22:46 All Systems PM: A 10-system review of systems was performed and is negative for pertinent findings except as documented above in the HPI. - Constitutional Constitutional: anorexia, weakness, no chills, no fever(s) - EENT Eyes: no dry eye, no pain - Cardiovascular Cardiovascular ROS IM: no chest pain, no edema, no lightheadedness, no orthopnea, no palpitations, no paroxysmal nocturnal dyspnea - Respiratory Respiratory: no cough, no wheezing, no pain on inspiration - Gastrointestinal Gastrointestinal: abdominal pain, nausea, no vomiting - Genitourinary Genitourinary ROS male: no dysuria, no urinary frequency, no urinary hesitancy - Musculoskeletal Musculoskeletal ROS IM: no atrophy, no muscle cramps, no stiffness - Integumentary Integumentary IM: no erythema, no skin ulcer - Neurological Neurological ROS: no abnormal gait, no headache(s) - Psychiatric Psychiatric: no anhedonia, no hopelessness - Endocrine Endocrine IM: no cold intolerance, no excessive sweating - Hematologic/Lymphatic Hematologic/Lymphatic: no lymphadenopathy - Allergic/Immunologic Allergic/Immunologic: no GI upset with certain foods - Constitutional Vitals: Temp Pulse Resp BP Pulse Ox 97.9 F 93 17 104/75 93 06/07/18 06:57 06/07/18 06:57 06/07/18 06:57 06/07/18 06:57 06/07/18 06:57 Exam: Vitals: Reviewed. General: Alert and oriented x4. In mild distress due to abdominal pain Skin: Normal color, no rash, no lesions. HEENT: Dry mucus membrane, EOM, pupils equal, round and reactive. Cardiovascular: RRR, normal S1 & S2, no rubs, murmurs or gallops. Lungs: CTA b/l, no wheezes or crackles. Abdomen: Distended, Soft, generalized tenderness, hepatomegaly, no rigidity. Extremities: No deformity, no edema or tenderness, no joint swelling or clubbing. Neurological: Normal cognition and motor skills. Rest of the physical exam is non contributory Internal Med - H&P Results - Labs CBC & Chem 7: 06/06/18 23:02 06/06/18 23:02 Labs: Short CBC 06/06/18 Range/Units 23:02 WBC 18.1 H (4.3-11.1) K/mcL Hgb 16.2 (12.9-16.9) g/dL Hct 49.5 (37.5-50.1) % Plt Count 389 (140-400) K/mcL Neutrophils # 14.9 H (1.6-8.9) K/mcL BMP 06/06/18 23:02 Sodium 140 Potassium 4.5 Chloride 108 H Carbon Dioxide 22 L BUN 33 H Creatinine 0.68 L Glucose 193 H Calcium 9.4 Liver Function 06/06/18 Range/Units 23:02 Total Bilirubin 0.7 (0.3-1.0) mg/dL Direct Bilirubin 0.3 H (0.0-0.2) mg/dL AST 53 H (13-39) Units/L ALT 96 H (7-52) Units/L Alkaline Phosphatase 280 H (34-104) Units/L Albumin 3.0 L (3.5-5.7) g/dL - Impressions ITS Impressions Abdomen/Pelvis CT 06/07/18 00:00 IMPRESSION: 1. Very large necrotic right hepatic lobe mass measures slightly larger than previously concerning for superinfected lesion. 2. Infrarenal AAA measuring 4 cm. Recommend vascular surgery consultation if not yet performed and annual imaging surveillance*. 3. Small volume abdominopelvic ascites is probably reactive. 4. Peripancreatic changes concerning for pancreatitis. Similar-appearing small peripancreatic fluid collections may be related to pseudocyst formation. * Managing Abdominal Aortic Aneurysms 2.6-2.9 cm: Every 5 years* 3.0-3.4 cm: Every 3 years. 3.5-3.9 cm: Every 1 year. 4.0-4.4 cm: Every 1 year. Recommend vascular consultation. 4.5-5.4 cm: Every 6 months. Recommend vascular consultation. Greater than or equal to 5.5 cm: Referral to vascular surgeon. *For abdominal aortas with maximum diameter of 2.6-2.9 cm meeting criteria for AAA (>50% of proximal normal segment). Reference: J Vasc Surg. 2009 Nov;50(4 Suppl):S2-49 Report D/ / Thony Alicea / Thony Alicea Interpreting Provider: Thony Alicea - Assessment and Plan (1) Pancreatitis Current Visit: Yes Status: Acute Assessment and plan: CT/CT abd pelvis w iv no oral IMPRESSION: 1. Very large necrotic right hepatic lobe mass measures slightly larger than previously concerning for superinfected lesion. 2. Infrarenal AAA measuring 4 cm. Recommend vascular surgery consultation if not yet performed and annual imaging surveillance*. 3. Small volume abdominopelvic ascites is probably reactive. 4. Peripancreatic changes concerning for pancreatitis. Similar-appearing small peripancreatic fluid collections may be related to pseudocyst formation. Plan bowel rest. NPO Accu-checks Q6HRs plus lispro low dose sliding scale IV hydration with D5NS @ 100 ml/hr PPI and anti-emetics ordered GI consulted will start the patient empirically on IV antibiotics, patient immuno compromised with recent chemotherapy. blood culture ordered. Oxycodone 10mg/PO Q4HR PRN for pain control Qualifiers: Chronicity: acute Pancreatitis type: unspecified pancreatitis type Acute pancreatitis complication: unspecified Qualified Code(s): K85.90 - Acute pancreatitis without necrosis or infection, unspecified (2) Liver cancer Current Visit: Yes Status: Chronic Assessment and plan: CT/CT abd pelvis w iv no oral IMPRESSION: 1. Very large necrotic right hepatic lobe mass measures slightly larger than previously concerning for superinfected lesion. Patient reported having chemotherapy pellets on May 20 and he is supposed to received radiation. following at the [facility]. Qualifiers: Liver malignancy type: unspecified liver malignancy Qualified Code(s): C22.9 - Malignant neoplasm of liver, not specified as primary or secondary (3) DVT prophylaxis Current Visit: No Status: Chronic Assessment and plan: heparin SubQ (4) Anxiety and depression Current Visit: No Status: Chronic Assessment and plan: hold home medications. patient NPO. (5) COPD (chronic obstructive pulmonary disease) Current Visit: No Status: Chronic Assessment and plan: chest is clear to auscultation. started on bronchodilators Q4RT PRN. Qualifiers: COPD type: emphysema Emphysema type: unspecified Qualified Code(s): J43.9 - Emphysema, unspecified (6) HLD (hyperlipidemia) Current Visit: No Status: Chronic Assessment and plan: statin held as patient NPO Qualifiers: Hyperlipidemia type: pure hypercholesterolemia Qualified Code(s): E78.00 - Pure hypercholesterolemia, unspecified; E78.0 - Pure hypercholesterolemia (7) HTN (hypertension) Current Visit: No Status: Chronic Assessment and plan: Hydralazine 5mg/IV Q6HRs PRN for SBP >160 Qualifiers: Hypertension type: essential hypertension Qualified Code(s): I10 - Essential (primary) hypertension - Time Spent With Patient Total time spent is greater than 50% in coordination of care (as documented) at patient's floor/unit and/or counseling patient: Greater than 35 minutes (45)
[2018-06-07] MEDS ORDERED: Ipratropium/Albuterol Neb 3 ML IH PRN (09:24)
[2018-06-07] MEDS ORDERED: Insulin LISPRO 300 UNITS/3 ML VIAL SQ SCH (11:30)
[2018-06-07] MEDS ORDERED: *HR* Heparin 5,000 UNIT/ML VIAL SQ SCH (14:00)
--- NOTE | 2018-06-07 14:03 | Event Note ---
Date of Encounter: 06/07/18 Time of Encounter: 14:02 patient oncology at [facility] requested patient to be transferred to their facility. [facility] transferred center called. Patient will be transferred there for continuity of care. Transfer done with <8 hour from admission.
--- NOTE | 2018-06-07 14:22 | Gastroenterology Consult Note ---
Date of Encounter: 06/07/18 Time of Encounter: 10:45 - Assessment and plan (1) Pancreatitis Current Visit: Yes Status: Acute Assessment and plan: Lipase 1766, TB 0.3, AST 53, ALT 96, Alk phos [address] A/P showed a very large necrotic right hepatic lobe mass slightly larger (17 x 18.6 cm) than previously (16.5 x 18 cm), peripancreatic changes concerning for pancreatitis. Continue IV fluids, pain control, and anti-emetics. Recently started treatment for liver cancer (05/20/2018) Recommend transfer to [facility] due to liver cancer. Qualifiers: Chronicity: acute Pancreatitis type: unspecified pancreatitis type Acute pancreatitis complication: unspecified Qualified Code(s): K85.90 - Acute pancreatitis without necrosis or infection, unspecified (2) Liver cancer Current Visit: Yes Status: Chronic Assessment and plan: As above. Qualifiers: Liver malignancy type: unspecified liver malignancy Qualified Code(s): C22.9 - Malignant neoplasm of liver, not specified as primary or secondary - Time Spent With Patient Total time spent is greater than 50% in coordination of care (as documented) at patient's floor/unit and/or counseling patient: GI History of Present Illness - Data of Consult Patient: new to practice Consult date: 06/07/18 Requesting Physician: Gilles Greene MD - Consult Narrative Reason for consult: liver mass, hx liver cancer History of present illness: Mr. Godoy is a 68 year old male with PMHx of liver cancer, HTN, COPD who presented to the ED with 10/10 abdominal pain that started on Thursday and worsened. He states pain began in LUQ and radiates to RUQ. Pain is associated with nausea, but he denies any vomiting. He denies fever, chills, chest pain, melena, or hematochezia. He reports starting chemotherapy for his liver cancer at [facility] on May 20, 2018[address] CT A/P showed a very large necrotic right hepatic lobe mass slightly larger (17 x 18.6 cm) than previously (16.5 x 18 cm), peripancreatic changes concerning for pancreatitis. Patient was offered transfer to [facility] and he requested to stay here if possible. Procedures: High-resolution esophageal motility study 04/19/2014 Dr. Forte: Normal EGD 03/09/2014 Dr. Reno: Irregular Z line, bleeding erosive gastropathy. Colonoscopy 03/29/2012 Dr. Reno: Two 4-5 mm tubular adenoma in transverse colon. EGD 08/25/2011 Dr. Reno: Gastritis. Colonoscopy 04/27/2009 Dr. Ramey: Sessile adenomatous polyp ascending colon and transverse colon. NSAIDs: ASA Anticoagulation: None Past Med Surg Social Fam HX - Past Medical History Medical history: cancer, COPD, hypertension Additional medical history: emphysema Psychiatric history: anxiety, depression, PTSD - Past Surgical History Surgical History: cholecystectomy, herniorrhaphy, pacemaker/AICD, other Additional surgical history: Heart Cath 2011. Carpal Tunnel bilateral hands. right shoulder surgery - Social History Smoking Status: Current every day smoker Smokeless Tobacco Status: No Alcohol use: none Drug use: none - Family History Mother Family Member Ethnicity: Non- Living Status: Hx Family Cardiac Disorders: Yes (HTN, heart murmur, CHF) Hx Family Cancer: Yes (Colon) Hx Family Endocrine Disorder: Yes (DM) Father Family Member Ethnicity: Non- Living Status: Hx Family Cardiac Disorders: Yes (HTN, Open heart, Valve replacement, [place]) Hx Family Respiratory Disorders: Yes - Gastrointestinal Gastrointestinal: Present: as per HPI - Constitutional Constitutional: as per HPI - EENT Eyes: as per HPI Ears: Present: as per HPI Nose, mouth and throat: Present: as per HPI - Cardiovascular Cardiovascular ROS: Present: as per HPI - Respiratory Respiratory IM: Present: as per HPI - Genitourinary Genitourinary: Absent: change in color, Urinary frequency - Neurological ROS Neurological GI: Present: as per HPI - Hematologic/Lymphatic Hematologic/Lymphatic pediatric: Present: as per HPI - Musculoskeletal Musculoskeletal ROS GI: Present: as per HPI - Integumentary Integumentary GI: Present: as per HPI - Psychiatric ROS Psychiatric GI: Present: as per HPI - Endocrine Endocrine IM: Present: as per HPI - Constitutional Vitals: Temp Pulse Resp BP Pulse Ox 98.4 F 79 16 109/75 90 06/07/18 12:06 06/07/18 12:06 06/07/18 12:06 06/07/18 12:06 06/07/18 12:06 General appearance: Present: cooperative, mild distress (due to pain), A&O X 3, answers questions appropriately - Head Head exam: Present: atraumatic, normocephalic - Eye Eye exam: Present: normal appearance, sclera anicteric - ENT ENT exam: Present: mucous membranes dry - Neck Neck exam general surgery: Present: normal inspection, trachea midline - Respiratory Respiratory exam: Present: CTAB. Absent: rales, rhonchi, wheezes - Cardiovascular Cardiovascular exam: Present: RRR, +S1, +S2 - GI/Abdominal GI/Abdominal exam: Present: hepatomegaly, soft, tenderness (generalized), no peritoneal signs. Absent: distended, firm, guarding - Rectal Rectal exam: Present: deferred - Extremities Exam Extremities exam: Present: warm - Neurological Exam Neurological exam: Present: no focal deficits - Psychiatric Psychiatric exam: Present: normal affect, normal mood - Skin Skin exam: Present: dry, intact, normal color, warm Results - Labs CBC & Chem 7: 06/06/18 23:02 06/06/18 23:02 Labs: Last Result Calcium 9.4 mg/dL (8.6-10.3) 06/06/18 23:02 Entire Visit Hgb 16.2 g/dL (12.9-16.9) 06/06/18 23:02 Hct 49.5 % (37.5-50.1) 06/06/18 23:02 PT 14.8 Seconds (9.4-12.1) H 06/06/18 23:02 Total Bilirubin 0.7 mg/dL (0.3-1.0) 06/06/18 23:02 AST 53 Units/L (13-39) H 06/06/18 23:02 ALT 96 Units/L (7-52) H 06/06/18 23:02 Lipase 1766 Units/L (11-82) H 06/06/18 23:02 - ABG ABG results: PT/INR, D-dimer PT 14.8 Seconds (9.4-12.1) H 06/06/18 23:02 - Impressions Impressions Abdomen/Pelvis CT 06/07/18 00:00 IMPRESSION: 1. Very large necrotic right hepatic lobe mass measures slightly larger than previously concerning for superinfected lesion. 2. Infrarenal AAA measuring 4 cm. Recommend vascular surgery consultation if not yet performed and annual imaging surveillance*. 3. Small volume abdominopelvic ascites is probably reactive. 4. Peripancreatic changes concerning for pancreatitis. Similar-appearing small peripancreatic fluid collections may be related to pseudocyst formation. * Managing Abdominal Aortic Aneurysms 2.6-2.9 cm: Every 5 years* 3.0-3.4 cm: Every 3 years. 3.5-3.9 cm: Every 1 year. 4.0-4.4 cm: Every 1 year. Recommend vascular consultation. 4.5-5.4 cm: Every 6 months. Recommend vascular consultation. Greater than or equal to 5.5 cm: Referral to vascular surgeon. *For abdominal aortas with maximum diameter of 2.6-2.9 cm meeting criteria for AAA (>50% of proximal normal segment). Reference: J Vasc Surg. 2009 Oct;50(4 Suppl):S2-49 Report D/ / Thony Alicea / Thony Alicea Interpreting Provider: Thony Alicea Consult Discharge Plan - Plan Referrals: Tai Bernal MD [Primary Care Provider] -
--- NOTE | 2018-06-07 16:15 | Electrocardiograph Report ---
[address] [place] [address] Test Date: 2018-06-06 Pat Name: Giorgio Godoy Department: EXAM3 Room: [facility] Gender: M Monkey Breeder: : 1950 Requested By: Alisha Meeks Order Number: [id number] Reading MD: Rubi Hayden Measurements Intervals [place] Rate: 74 P: [place]: 126 QRS: -43 QRSD: 137 T: 14 QT: 410 QTc: 455 Interpretive Statements Atrial-paced rhythm Right bundle branch block Inferior infarct, old Electronically Signed On 06-07-2018 16:14:12 EDT by Rubi Hayden
[2018-06-07 16:45] VITALS: BP 125/84
== END 2018-06-07 17:43 | disposition short-term general hospital (02) ==
LOC: 3NENU 22:04 → EMEROOARM 22:04 → 3NENU 06-07 01:54
PROVIDERS: ADMIT Pediatrics; ATTEND Pediatrics